=== PATIENT | male | born 1945 | race Caucasian/White ===

== ENCOUNTER 2018-11-12 16:34 | Inpatient (IN) | payer OTHER, MEDICAID ==
[~2018-11-12] VITALS: Ht 167.6 cm; Wt 61.2 kg
--- NOTE | 2018-11-12 17:00 | NUR ---
73/M BIB AMBULANCE, C/O OF GENERALIZED WEAKNESS AND DIZZINESS, STATES HE HAD GEN WEAKNESS SINCE CHEMOTHERAPY LAST MONDAY. PATIENT REPORTS FEELING SOB, ALL THE TIME. PATIENT STATES HE HAS AN ON DEMAND DEFIBRILLATOR. PT AWAKE, ALERT. ABLE TO FOLLWO COMANDS. STAYING IN BED, HOB 30 DEGREES WITH LOW BED POSITION. MD MADE AWARE OF PT STATUS. 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
[2018-11-12] MEDS ORDERED: NACL 0.9% 2,000 ML IV SCH (17:08)
[2018-11-12] MEDS ORDERED: ONDANSETRON 4 MG/2 ML VIAL IVP ONE (17:10)
--- NOTE | 2018-11-12 17:34 | NUR ---
TWO ATTEMPTS FOR ABG AND PT STATED NO MORE, NOTIFIED DR. HERNANDEZ
[2018-11-12 18:56] LABS: HEMATOCRIT 21.7 % (36-52); HEMOGLOBIN 7.2 g/dL (12.0-18.0); MEAN CORPUSCULAR HEMOGLOBIN 30 pg (27-31); MEAN CORPUSCULAR HGB CONC 33 g/dL (33-37); MEAN CORPUSCULAR VOLUME 88.6 fL (80-94); RED BLOOD CELL COUNT(AUTO) 2.45 MIL/uL (4.20-6.10); RED CELL DISTRIBUTION WIDTH 21.5 % (11.6-13.7); WHITE BLOOD COUNT (AUTO) 3.5 K/uL (4.8-10.8)
[2018-11-12 18:57] LABS: PROTHROMBIN TIME 19.1 secs (10.8-13.4)
[2018-11-12 19:08] LABS: MAGNESIUM 2.5 mg/dL (1.8-2.4)
[2018-11-12 19:09] LABS: ANION GAP 16.8 (8-16); CARBON DIOXIDE 21.5 mmol/L (21-32); CHLORIDE 101 mmol/L (98-107); GLUCOSE 114 mg/dL (74-106); POTASSIUM 5.3 mmol/L (3.5-5.1); SODIUM SERUM 134 mmol/L (136-145)
[2018-11-12 19:10] LABS: ASPARTATE AMINOTRANSFERASE 434 U/L (15-37); CREATININE 2.4 mg/dL (0.7-1.3)
--- NOTE | 2018-11-12 19:10 | NUR ---
ENDORSED PT TO PM NURSE
[2018-11-12 19:11] LABS: ALBUMIN 2.7 g/dL (3.4-5.0)
[2018-11-12 19:13] LABS: UREA NITROGEN, BLOOD 70 mg/dL (7-18)
[2018-11-12 19:15] LABS: ACETONE, SERUM NEGATIVE (NEGATIVE); URIC ACID 18.8 mg/dL (2.6-7.2)
[2018-11-12 19:17] LABS: D-DIMER > 5000 ng/ml (0-400)
[2018-11-12] MEDS ORDERED: HYDROcodone/APAP 5/325 MG 1 TAB TAB PO PRN (19:30)
[2018-11-12] MEDS ORDERED: ACETAMINOPHEN 325 MG TAB PO PRN (19:30)
[2018-11-12] MEDS ORDERED: DOCUSATE SODIUM 100 MG GELCAP PO PRN (19:30)
[2018-11-12] MEDS ORDERED: ONDANSETRON 4 MG/2 ML VIAL IM/IVP PRN (19:30)
[2018-11-12 19:38] LABS: LYMPHOCYTES % (MANUAL) 15 % (20-46); MONOCYTES % (MANUAL) 2 % (5-12)
[2018-11-12 19:39] LABS: EOSINOPHILS % (MANUAL) 1 % (0-4)
[2018-11-12 19:43] LABS: PLATELET COUNT (AUTO) 20 K/uL (140-450)
[2018-11-12] MEDS ORDERED: NACL 0.9% 1,000 ML IV SCH (20:00)
[2018-11-12 20:14] LABS: PHOSPHORUS 3.4 mg/dL (2.5-4.9); THYROID STIMULATING HORMONE 2.41 uIU/mL (0.34-3.74)
--- NOTE | 2018-11-12 20:15 | NUR ---
RECEIVED REPORT FROM JESUS OCHOA. PT IN BED WITH BOLUS INFUSING.
--- NOTE | 2018-11-12 20:35 | NUR ---
STARTED 18G IV TO RIGHT FOREARM. DATE TIME AND INITIALS AT IV SITE. BOLUS INFUSING.
--- NOTE | 2018-11-12 20:45 | NUR ---
PT BECAME UNRESPONSIVE WHILE DR COLE WAS ASKING HIM QUESTIONS. PT O2 SATURATION WENT DOWN TO 80% AND PT ONLY RESPONDED TO PAIN. STARTED 02 AT 2L VIA NASAL CANNULA. PT STARTED RESPONDING AFTER 1-[address] COLE SAID SHE IS ADMITTING PT TO ICU INSTEAD.
[2018-11-12] MEDS ORDERED: NACL 0.9% 1,000 ML IV ONE (20:55)
[2018-11-12] MEDS ORDERED: VANCOMYCIN PER PHARMACY MC PRN (20:55)
[2018-11-12] MEDS: FUROSEMIDE 20 MG TAB PO SCH ×2 (21:00→21:43)
--- NOTE | 2018-11-12 21:25 | NUR ---
Patient will be admitted to care of DR BRAXTON. Admited to ICU. Will go to room ICU-2. Belongings list completed. Report to GUANAKO LEE.
--- NOTE | 2018-11-12 21:40 | NUR ---
PATIENT TRANSFERRED FROM ER VIA [place] WITH 2 ASSISTANCE. PATIENT AAO X4, VERBALLY RESPONSIVE. 2L/M O2 VIA NC. HYPOTENSIVE NOTED. PERIPHERAL LINES TO LEFT FOREARM 20G AND RIGHT FOREARM 18G RUNNING WITH NS BOLUS. NO ACUTE DISTRESS NOTED. PACEMAKER TO LEFT UPPER CHEST NOTED. PACED RHYTHM ON THE MONITOR. ACTIVE BOWEL SOUND FROM ALL 4QUADS. HOB ELEVATED, BED IN LOW POSITION. CALL LIGHT WITHIN REACH. PATIENT STATED THAT HE WANT TO SLEEP. DENIES PAIN. WILL CONTINUE TO MONITOR.
[2018-11-12] MEDS: HYDROCORTISONE NA SUCC 100 MG/2 ML VIAL IV SCH (21:43)
[2018-11-12 22:00] VITALS: BP 75/43
[2018-11-12] MEDS ORDERED: VANCOMYCIN 1GM/DEXT 5% PREMIX 200 ML IV SCH (22:00)
[2018-11-12] MEDS ORDERED: SODIUM POLYSTYRENE 15 GM/60 ML UDBTL PO SCH (22:00)
[2018-11-12] MEDS ORDERED: VANCOMYCIN 1,000 MG VIAL ONE (22:39)
[2018-11-12] MEDS ORDERED: METO100T33 PO (22:49)
[2018-11-12] MEDS ORDERED: SPIR25TA (22:49)
[2018-11-12] MEDS ORDERED: ATOR20TA40 PO (22:49)
[2018-11-12] MEDS ORDERED: LOSA100T1 PO (22:49)
[2018-11-12] MEDS ORDERED: APIX5TAB (22:49)
[2018-11-12] MEDS ORDERED: TOPI25CA (22:49)
[2018-11-12] MEDS ORDERED: EFAV600T (22:49)
[2018-11-12] MEDS ORDERED: FURO-570 PO (22:49)
[2018-11-12] MEDS ORDERED: [UNRECOGNIZED DRUG - CODE] PO (22:49)
[2018-11-12] MEDS ORDERED: EMTR1TAB16 (22:49)
--- NOTE | 2018-11-12 22:50 | NUR ---
PRBC BLOOD TRANSFUSION STARTED, VERIFIED WITH CHARGE NURSE. WILL CONTINUE TO MONITOR.
[2018-11-12] MEDS: ACETAMINOPHEN 325 MG TAB PO SCH (22:57)
[2018-11-12] MEDS: DEXT 5% / NACL 0.45% 1,000 ML IV SCH (23:18)
[2018-11-12] MEDS ORDERED: PIPERACILLIN/TAZOBACTAM 2.25 GM VIAL IV ONE (23:27)
--- NOTE | 2018-11-12 23:35 | NUR ---
NO REACTION FROM BLOOD TRANSFUSION NOTED.
[2018-11-13] VITALS (72 sets, daily range): BP systolic 78–118; BP diastolic 38–72
--- NOTE | 2018-11-13 | NUR ---
PT FOR CT OF HEAD WITHOUT CONTRAST ORDERED; BERYL FROM RADIOLOGY IN THE UNIT WITH SIGNALS OFFICER TU LEE; PT STILL RECEIVING BLOOD TRANSFUSION(PRBC) AT THIS TIME; PHONE CALL MADE TO DR OLIVIER VALDOVINOS SAID OK TO DO CT AFTER BLOOD TRANSFUSION.
--- NOTE | 2018-11-13 00:40 | NUR ---
PATIENT PLACED ON VENTI-MASK 15L 50% BECAUSE PATIENT SATURATION WAS DECREASING ON NASAL CANNULA 4L-6L NC. RN AND DOCTOR NOTIFIED. PATIENT IS STABLE ON VENTI-MASK SPO2 98 HEART RATE 81 RR 14. PATIENT WILL BE MONITORED AND FIO2 WILL BE DECREASED/ TITRATED BASED ON HOW THE PATIENT RESPONDS.
[2018-11-13] MEDS: PIPER/TAZO 2.25GM/D5W PREMIX 50 ML IV SCH ×4 (00:56→17:35)
--- NOTE | 2018-11-13 02:15 | NUR ---
BLOOD TRANSFUSION IS DONE. PATIENT AAO X 4. NO ACUTE DISTRESS NOTED. DENIES ANY PAIN OR DISCOMFORT. WILL CONTINUE TO MONITOR.
--- NOTE | 2018-11-13 03:15 | NUR ---
PATIENT HAD BOWEL MOVEMENT, SMALL AMOUNT BLACK COLOR DIARRHEA NOTED.
--- NOTE | 2018-11-13 03:40 | NUR ---
PATIENT CAME BACK FROM CT OF HEAD WITHOUT CONTRAST. NO ACUTE DISTRESS. DENIES PAIN. WILL CONTINUE TO MONITOR.
[2018-11-13] MEDS: ACETAMINOPHEN 325 MG TAB PO SCH ×2 (04:00→08:00)
[2018-11-13] MEDS ORDERED: DOPamine 400 MG/D5W PREMIX 250 ML IV SCH (04:20)
--- NOTE | 2018-11-13 04:35 | NUR ---
STARTED DOPAMINE DRIP FOR HYPOTENSION ORDERED BY DR. DILLON. WILL CONTINUE TO MONITOR.
[2018-11-13] MEDS: HYDROCORTISONE NA SUCC 100 MG/2 ML VIAL IV SCH ×3 (04:38→20:53)
--- NOTE | 2018-11-13 04:40 | NUR ---
HOLD 0400 DOSE FOR BENADRYL AND TYLENOL DUE TO PATIENT IS NOT ON BLOOD TRANSFUSION AT THIS TIME, DR. DILLON AWARE.
--- NOTE | 2018-11-13 05:15 | NUR ---
STOPPED DOPAMINE DRIP DUE TO HR [address] DILLON[address] WILL FOLLOW ORDER.
[2018-11-13] MEDS ORDERED: NOREPINEPHRINE 4 MG in DEXTROSE 5% 250 ML IV PRN (05:20)
[2018-11-13] MEDS ORDERED: PIPERACILLIN/TAZOBACTAM 2.25 GM VIAL IV ONE (05:41)
[2018-11-13] MEDS ORDERED: NOREPINEPHRINE 4 MG/4 ML VIAL IV ONE (05:46)
--- NOTE | 2018-11-13 05:47 | NUR ---
STAT EKG done on patient. Heart rate elevated and blood pressure was low. EKG completed and given to RN nurse and Doctor notified. Patient saturation is 94 heart rate 112bpm. Patient will remain venti-mask 15lpm %50 fio2. RT will monitor patient no changes at this time.
--- NOTE | 2018-11-13 05:50 | NUR ---
STARTED LEVOPHED DRIP FOR HYPOTENSIVE.
[2018-11-13] MEDS: DEXT 5% / NACL 0.45% 1,000 ML IV SCH ×2 (07:00→14:49)
[2018-11-13 07:04] LABS: BASOPHILS % (AUTO) 0.7 % (0.0-2.0); EOSINOPHILS % (AUTO) 0.2 % (0.0-4.0); HEMATOCRIT 24.8 % (36-52); HEMOGLOBIN 8.2 g/dL (12.0-18.0); LYMPHOCYTES # (AUTO) 0.4 K/uL (2.0-11.5); LYMPHOCYTES % (AUTO) 14.6 % (20.5-51.1); MEAN CORPUSCULAR HEMOGLOBIN 30 pg (27-31); MEAN CORPUSCULAR HGB CONC 33 g/dL (33-37); MEAN CORPUSCULAR VOLUME 89.8 fL (80-94); MONOCYTES % (AUTO) 1.6 % (1.7-9.3); NEUTROPHILS # (AUTO) 2.3 K/uL (1.8-7.7); NEUTROPHILS % (AUTO) 82.9 % (42.2-75.2); RED BLOOD CELL COUNT(AUTO) 2.76 MIL/uL (4.20-6.10); RED CELL DISTRIBUTION WIDTH 19.9 % (11.6-13.7); WHITE BLOOD COUNT (AUTO) 2.8 K/uL (4.8-10.8)
[2018-11-13 07:09] LABS: PLATELET COUNT (AUTO) 17 K/uL (140-450)
--- NOTE | 2018-11-13 07:10 | NUR ---
RECEIVED PATIENT FROM ACADEMIC SERVICES COORDINATOR RN, MARIA, FOR CONTINUITY OF CARE. PATIENT IS AAOX4, ABLE TO FOLLOW COMMANDS AND MAKE NEEDS KNOWN. PATIENT SKIN IS WARM AND DRY, AFEBRILE, SKIN NOT INTACT, HE HAS A OPEN WOUND TO R. BUTTOCKS. PATIENT HAS PERIPHERAL IV SITE TO L. FA, 20 GAUGE, AND R. FA, 18 GAUGE, BOTH ASYMPTOMATIC AND PATENT. HE IS ON VENTURI MASK AT 15 LPM, BREATHING IS EVEN AND UNLABORED. PATIENT HAS A PACEMAKER, PACED RHYTHM ON MONITOR, HR 88. DENIES ANY PAIN OR SOB. SAFETY PRECAUTIONS ASSESSED AND ENFORCED. CALL LIGHT WITHIN REACH, NO SIGNS OF DISTRESS NOTED. WILL CONTINUE TO MONITOR
[2018-11-13 07:59] LABS: MAGNESIUM 2.3 mg/dL (1.8-2.4)
--- NOTE | 2018-11-13 07:59 | NUR ---
PATIENT STARTED ON TRANSFUSION OF PLATELETS, ADMINISTERED TYLENOL PRIOR TO TRANSFUSION, TEMP OF 99.8, NO SIGNS OF DISTRESS NOTED, WILL CONTINUE TO MONITOR
--- NOTE | 2018-11-13 08:10 | NUR ---
DR. BRAXTON AND RESIDENT PHYSICIANS AT BEDSIDE, UPDATED PATIENT ON PLAN OF CARE. WILL FOLLOW UP ON ANY ORDERS
--- NOTE | 2018-11-13 08:13 | NUR ---
PATIENT HAS BEEN SCREENED AND CATEGORIZED HIGH NUTRITION RISK. PATIENT WILL BE SEEN WITHIN 1-2 DAYS OF ADMISSION. 11/13/18-11/14/[address]
[2018-11-13 08:21] LABS: T4 (THYROXINE) 4.6 ug/dL (4.5-12.0)
[2018-11-13 08:25] LABS: ANION GAP 17.7 (8-16); CARBON DIOXIDE 19.5 mmol/L (21-32); CHLORIDE 105 mmol/L (98-107); CREATININE 1.9 mg/dL (0.7-1.3); GLUCOSE 187 mg/dL (74-106); POTASSIUM 4.2 mmol/L (3.5-5.1); SODIUM SERUM 138 mmol/L (136-145)
[2018-11-13] MEDS: EMTRICITABINE/TENOFOVIR 200-300MG 1 TAB PO SCH (09:00)
--- NOTE | 2018-11-13 09:01 | NUR ---
DECREASE FIO2 TO .35 AT 9 LITERS SPO2 100
--- NOTE | 2018-11-13 10:10 | NUR ---
TRANSFUSION COMPLETE, PATIENT TOLERATED WELL, NO SIGNS OF REACTION NOTED
[2018-11-13] MEDS: LACTOBACILLUS RHAMNOSUS GG 1 EACH CAP PO SCH (10:16)
[2018-11-13] MEDS ORDERED: PANTOPRAZOLE 40 MG INJ VIAL IVP SCH (10:27)
--- NOTE | 2018-11-13 10:30 | NUR ---
DR. ERICKSON IN TO SEE AND EXAMINE PATIENT, UPDATED ON PATIENT'S CONDITION. WILL FOLLOW UP ON ANY ORDERS.
--- NOTE | 2018-11-13 11:00 | NUR ---
pt unable to produce sputum at this time
[2018-11-13 11:09] LABS: UREA NITROGEN, BLOOD 62 mg/dL (7-18)
--- NOTE | 2018-11-13 11:50 | NUR ---
PATIENT IS OFF UNIT TO GO TO [facility] FOR VQ SCAN, HOOKED UP TO SWITCHBOARD WIRE WORKER HELPER, ON VENTURI MASK AT 9LPM, ACCOMPANIED BY SQL MANAGER, MARLYN, AND [facility] TECH RAYSHAWN. NO SIGNS OF DISTRESS AT THIS TIME
[2018-11-13] MEDS ORDERED: LIDOCAINE 2% 1000 MG/50 ML VIAL INJ SCH (14:14)
[2018-11-13] MEDS ORDERED: NOREPINEPHRINE 16 MG in DEXTROSE 5% 250 ML IV PRN (14:20)
[2018-11-13 15:32] LABS: BASOPHILS % (AUTO) 0.6 % (0.0-2.0); EOSINOPHILS % (AUTO) 0.2 % (0.0-4.0); HEMATOCRIT 24.8 % (36-52); HEMOGLOBIN 8.1 g/dL (12.0-18.0); LYMPHOCYTES # (AUTO) 0.5 K/uL (2.0-11.5); LYMPHOCYTES % (AUTO) 18.5 % (20.5-51.1); MEAN CORPUSCULAR HEMOGLOBIN 29 pg (27-31); MEAN CORPUSCULAR HGB CONC 33 g/dL (33-37); MEAN CORPUSCULAR VOLUME 89.5 fL (80-94); MONOCYTES # (AUTO) 0.1 K/uL (0.8-1.0); MONOCYTES % (AUTO) 1.9 % (1.7-9.3); NEUTROPHILS # (AUTO) 2.1 K/uL (1.8-7.7); NEUTROPHILS % (AUTO) 78.8 % (42.2-75.2); PLATELET COUNT (AUTO) 50 K/uL (140-450); RED BLOOD CELL COUNT(AUTO) 2.77 MIL/uL (4.20-6.10); RED CELL DISTRIBUTION WIDTH 20.5 % (11.6-13.7); WHITE BLOOD COUNT (AUTO) 2.7 K/uL (4.8-10.8)
--- NOTE | 2018-11-13 15:47 | NUR ---
S.T BEDSIDE SWALLOW EVAL COMPLETED Pt presents with mild oral dysphagia c/b impaired mastication of solids. No overt s/s aspiration. Recommend: 1) Advance to mechanical soft ground diet, thin liquids ok. 2) P.O. meds ok whole, placed to R side of oral cavity. No f/u indicated at this time. DC to [facility]. TIME [id number]
--- NOTE | 2018-11-13 15:49 | NUR ---
PATIENT'S FAMILY AT BEDSIDE
[2018-11-13 16:36] LABS: D-DIMER > 5000 ng/ml (0-400); FIBRINOGEN 400 mg/dL (200-400); PROTHROMBIN TIME 17.2 secs (10.8-13.4)
[2018-11-13] MEDS ORDERED: EMTR1TAB16 PO (17:12)
[2018-11-13] MEDS: DESCOVY 200MG/25MG TAB PO SCH (17:35)
--- NOTE | 2018-11-13 18:48 | NUR ---
DR. SIDDIQUI AT BEDSIDE, WILL FOLLOW UP ON ANY ORDERS
--- NOTE | 2018-11-13 19:21 | NUR ---
ENDORSED CONTINUITY OF CARE TO TANK ASSEMBLER RNMARIA, NO SIGNS OF DISTRESS NOTED.
--- NOTE | 2018-11-13 19:30 | NUR ---
RECEIVED BEDSIDE REPORT FROM MORNING NURSE. PATIENT AAO X4, VERBALLY RESPONSIVE. ON VENTI MASK WITH 8L/M OXYGEN, FIO2 35% . HYPOTENSIVE NOTED. CENTRAL LINE TO RIJ TRIPLE LUMENS NOTED WITH LEVOPHED DRIP 5MCG/MIN, D5 1/2NS 60ML/HR. PERIPHERAL LINES TO LEFT FOREARM 20G AND RIGHT FOREARM 18G ON SALINE LOCK. NO ACUTE DISTRESS NOTED. PACEMAKER TO LEFT UPPER CHEST NOTED. PACED RHYTHM TO A-FIB ON THE MONITOR WITH HR 120'S. ACTIVE BOWEL SOUND FROM ALL 4QUADS. HOB ELEVATED, BED IN LOW POSITION. CALL LIGHT WITHIN REACH.
[2018-11-13] MEDS: ATORVASTATIN 20 MG TAB PO SCH (20:53)
[2018-11-13] MEDS: Z-GUARD PASTE TP SCH (21:00)
--- NOTE | 2018-11-13 21:00 | NUR ---
ADMINISTERED SCHEDULED MEDICATIONS ORDERED. PATIENT TOLERATED WELL PO MEDICATION. PACED RHYTHM TO A FIB ON THE MONITOR. DENIES PAIN AT THIS TIME. WILL CONTINUE TO MONITOR.
--- NOTE | 2018-11-13 22:50 | NUR ---
AT BEDSIDE TO CHECK THE PATIENT. WILL FOLLOW ORDER.
[2018-11-13] MEDS ORDERED: VANCOMYCIN 750 MG in DEXTROSE 5% 250 ML IV SCH (23:00)
[2018-11-13] MEDS ORDERED: AMIODARONE 450 MG in DEXTROSE 5% 250 ML IV SCH (23:00)
--- NOTE | 2018-11-13 23:00 | NUR ---
PHONE CALL TO DR HERNANDEZ; MADE AWARE THAT RUNS OF VTACH BECOMING MORE FREQUENT; PTS HEART RATE TO 140'S, DR HERNANDEZ SAID TO CALL DR WEI, FRETTED STRING INSTRUMENT REPAIRER. PHONE CALL TO DR SIDDIQUI,MADE AWARE OF PTS PRESENT CONDITION MENTIONED ABOVE, ALSO INFORMED DR SIDDIQUI PT STILL ON LEVOPHED DRIP AT MCG/MIN, MD ORDERED TO START PT ON AMIODARONE DRIP PER PROTOCOL.OLRENA LEE,AWARE.
[2018-11-13 23:15] LABS: BARBITURATE, URINE NEG. ng/ml (NEG <=200); BENZODIAZEPINE, URINE NEG. ng/mL (NEG <=200); CANNABINOID, URINE NEG. ng/mL (NEG <=50); COCAINE, URINE NEG. ng/mL (NEG <=300); OPIATE, URINE NEG. ng/mL (NEG <=2000); PHENCYCLIDINE SCREEN,URINE NEG. ng/mL (NEG <=25)
[2018-11-13] MEDS ORDERED: AMIODARONE 450 MG/9 ML VIAL IV ONE (23:23)
[2018-11-13] MEDS ORDERED: AMIODARONE 150 MG/3 ML VIAL IV ONE (23:25)
--- NOTE | 2018-11-13 23:40 | NUR ---
STARTED AMIODARONE DRIP, LOADING DOSE DONE AT THIS TIME AND CHANGED TO SLOW LOADING DOSE 33.33ML/HR. WILL CONTINUE TO MONITOR.
[2018-11-13 23:50] LABS: APPEARANCE,URINE CLEAR (CLEAR); BILIRUBIN,URINE NEGATIVE (NEGATIVE); BLOOD, URINE TRACE-I (NEGATIVE); COLOR,URINE YELLOW (YELLOW); LEUKOCYTE ESTERASE ,URINE NEGATIVE (NEGATIVE); NITRITE, URINE NEGATIVE (NEGATIVE); UGLUCOSE NEGATIVE (NEGATIVE)
[2018-11-13 23:51] LABS: RBC,URINE 0-5 (RARE) /HPF (0-5); WBC,URINE 0-5 (RARE) /HPF (0-5)
[2018-11-14] VITALS (95 sets, daily range): BP systolic 86–158; BP diastolic 40–129
[2018-11-14] MEDS: PIPER/TAZO 2.25GM/D5W PREMIX 50 ML IV SCH ×4 (00:39→17:27)
--- NOTE | 2018-11-14 00:40 | NUR ---
ADMINISTERED IV ABX ORDERED. NO ACUTE DISTRESS NOTED. DENIES PAIN. STILL A FIB ON THE MONITOR WITH LEVOPHED DRIP AND AMIODARONE DRIP. WILL CONTINUE TO MONITOR.
--- NOTE | 2018-11-14 02:45 | NUR ---
PATIENT DENIES PAIN. STILL AWAKE. HR BELOW 110 NOTED. NO ACUTE DISTRESS NOTED. WILL CONTINUE TO MONITOR.
--- NOTE | 2018-11-14 04:25 | NUR ---
PATIENT AWAKE. NO ACUTE DISTRESS NOTED. DENIES PAIN. A-FIB ON PACED ON DEMAND WITH HR 110'S. WILL CONTINUE TO MONITOR.
[2018-11-14] MEDS: HYDROCORTISONE NA SUCC 100 MG/2 ML VIAL IV SCH ×3 (05:48→20:39)
[2018-11-14 05:59] LABS: ANION GAP 15.1 (8-16); CARBON DIOXIDE 20.8 mmol/L (21-32); CHLORIDE 105 mmol/L (98-107); CREATININE 1.2 mg/dL (0.7-1.3); GLUCOSE 201 mg/dL (74-106); SODIUM SERUM 138 mmol/L (136-145); UREA NITROGEN, BLOOD 38 mg/dL (7-18)
[2018-11-14 06:03] LABS: MAGNESIUM 2.1 mg/dL (1.8-2.4); PHOSPHORUS 2.6 mg/dL (2.5-4.9)
[2018-11-14 06:16] LABS: POTASSIUM 2.9 mmol/L (3.5-5.1)
[2018-11-14 06:23] LABS: HEMATOCRIT 25.1 % (36-52); HEMOGLOBIN 8.4 g/dL (12.0-18.0); MEAN CORPUSCULAR HEMOGLOBIN 30 pg (27-31); MEAN CORPUSCULAR HGB CONC 34 g/dL (33-37); MEAN CORPUSCULAR VOLUME 88.6 fL (80-94); PLATELET COUNT (AUTO) 46 K/uL (140-450); RED BLOOD CELL COUNT(AUTO) 2.83 MIL/uL (4.20-6.10); RED CELL DISTRIBUTION WIDTH 19.6 % (11.6-13.7)
[2018-11-14 06:25] LABS: WHITE BLOOD COUNT (AUTO) 2.2 K/uL (4.8-10.8)
[2018-11-14] MEDS ORDERED: KCL 20 MEQ/WATER INJ PREMIX 200 ML IV SCH (06:30)
--- NOTE | 2018-11-14 07:30 | NUR ---
RECEIVED BEDSIDE REPORT FROM NIGHT NURSE. PATIENT IS AWAKE, AAO X4, ABLE TO MAKE NEEDS KNOWN. PACED RHYTHM TO A. FIB ON MONITOR. PACEMAKER TO LEFT UPPER CHEST NOTED. PT IS ON VENTURI MASK WITH FIO2 35%, SPO2 94% AT THIS TIME. NO SOB NOTED. CENTRAL LINE TLC TO RIJ ASYMPTOMATIC, INTACT AND PATENT, RUNNING LEVOPHED DRIP AT 7 MCG/MIN, D5 1/2NS AT 60ML/HR, AMIODARONE DRIP AT 0.5 MCG/MIN. PERIPHERAL IVS TO LEFT FOREARM 20G AND RIGHT FOREARM 18G INTACT AND PATENT. ABD SOFT, NONTENDER, NONDISTENDED W/ ACTIVE BOWEL SOUNDS. SKIN IS DRY AND WARM TO TOUCH. 2+ PITTING EDEMA TO BLLE NOTED. SCDS IN PLACE. HOB ELEVATED, BED IN LOWEST POSITION. PT DENIES PAIN. NO DISTRESS NOTED. CALL LIGHT WITHIN REACH. WILL CONTINUE TO MONITOR.
[2018-11-14 07:42] LABS: FIBRINOGEN 374 mg/dL (200-400)
[2018-11-14 07:45] LABS: LYMPHOCYTES % (MANUAL) 25 % (20-46); MONOCYTES % (MANUAL) 3 % (5-12)
--- NOTE | 2018-11-14 07:45 | NUR ---
BREAKFAST PROVIDED. PT REFUSED BREAKFAST STATING HE DOES NOT HAVE ANY APPETITE. REQUESTED ICE CHIPS. ICE CHIPS PROVIDED. NO SIGNS OF DISTRESS NOTED.
--- NOTE | 2018-11-14 08:00 | NUR ---
DR. BRAXTON IN RESIDENT GROUP IN TO SEE PT. WILL FOLLOW UP ON ORDERS.
[2018-11-14] MEDS ORDERED: PROBIOTIC SCREEN 1 EA MISC MC PRN (08:05)
--- NOTE | 2018-11-14 08:30 | NUR ---
PATIENT REQUESTED TO CALL BROTHER ANTHONY MCHUGH IN [place] AT [phone] TO DISCUSS FINANCIAL MATTERS. PATIENT'S BROTHER ANTHONY MCHUGH AND DAUGHTER NISHI MCHUGH TO PATIENT OVER SPEAKER PHONE.
[2018-11-14] MEDS: Z-GUARD PASTE TP SCH (08:34)
[2018-11-14] MEDS: LACTOBACILLUS RHAMNOSUS GG 1 EACH CAP PO SCH (08:34)
[2018-11-14] MEDS: PANTOPRAZOLE 40 MG INJ VIAL IVP SCH (08:34)
[2018-11-14] MEDS ORDERED: DOBUTamine 250 MG/D5W PREMIX 250 ML IV SCH (08:45)
--- NOTE | 2018-11-14 08:50 | NUR ---
PT SEEN BY DR. ERICKSON. WILL FOLLOW UP ON ORDERS.
[2018-11-14] MEDS: DEXT 5% / NACL 0.45% 1,000 ML IV SCH (08:59)
--- NOTE | 2018-11-14 09:30 | NUR ---
MEDICATIONS ADMINISTERED ORDERED.
[2018-11-14] MEDS ORDERED: DOBUTamine 500 MG/D5W PREMIX 250 ML IV SCH (10:15)
--- NOTE | 2018-11-14 10:24 | NUR ---
RECEIVED A CALL FROM X RAY FOR A CRITICAL REPORT. READ BACK RESULTS. DR. SANDOVAL MADE AWARE.
--- NOTE | 2018-11-14 10:45 | NUR ---
District Claims Manager Note: I was informed by JESUS Cook patient was requesting a blank Power of Contact Center Associate for finances form. I met with patient at bedside to discuss his request. Per patient, his brother's (Chay Ryan) daughter Debra Ryan is going to assist him with his request. He stated he has an Advance Directive for health care in his medical chart. I checked chart, there is no Advance Directive. I informed him we don't have an Advance Directive in his chart. He stated he was previously hospitalized in [facility] and they might have his Advance Directive. He verbalized he would like his brother Chay Ryan and his daughter Debra Ryan to be his representatives in case of an emergency. Machinist/Machine Builder and/or Teacher Selection Specialist will follow up as needed.
--- NOTE | 2018-11-14 12:05 | NUR ---
PT VOIDED CLEAR YELLOW URINE. NO CHANGE IN CONDITION AT THIS TIME. PT STILL ON LEVOPHED AND AMIODARONE DRIPS. PT NOT IN ANY DISTRESS. WILL CONTINUE TO MONITOR.
[2018-11-14] MEDS ORDERED: VANCOMYCIN 1GM/DEXT 5% PREMIX 200 ML IV SCH (13:00)
[2018-11-14 13:27] LABS: D-DIMER > 5000 ng/ml (0-400)
--- NOTE | 2018-11-14 14:10 | NUR ---
TURNED AND REPOSITIONED FOR COMFORT. PT TOLERATED WELL.
--- NOTE | 2018-11-14 14:19 | NUR ---
11/14/18 RD INITIAL ASSESSMENT COMPLETED PLEASE REFER TO NUTRITION ASSESSMENT UNDER CARE ACTIVITY FOR ESTIMATED NUTRITIONAL NEEDS. 1. CONTINUE CARDIAC MECHANICALLY SOFT DIET TOLERATED 2. RECOMMEND ENSURE CLEAR TID 3. IF PATIENT CONTINUES TO HAVE PO INTAKE LESS THAN 50% CONSIDER ENTERAL NUTRITION 4. RD TO FOLLOW-UP 2-3 DAYS, HIGH RISK CHRISTOFER CASTILLO RD
[2018-11-14] MEDS ORDERED: POTASSIUM CHLORIDE 40 MEQ, LIDOCAINE 1% 25 MG in NACL 0.9% 250 ML IV SCH (15:00)
[2018-11-14] MEDS ORDERED: EMTRICITABINE PO SCH (17:00)
[2018-11-14] MEDS ORDERED: TENOFOV ALAFENAM PO SCH (17:00)
[2018-11-14] MEDS: DESCOVY 200MG/25MG TAB PO SCH (17:28)
--- NOTE | 2018-11-14 17:50 | NUR ---
PT'S BROTHER, ANTHONY CALLED AND TALKED TO PT VIA HAND PHONE. PT IS AAOX4, NO SOB OR DISTRESS NOTED.
--- NOTE | 2018-11-14 18:31 | NUR ---
DR. HERNANDEZ IN TO SEE PT. UPDATED ON PT'S CONDITION. DR. HERNANDEZ MADE AWARE THAT PT REFUSED MEALS DUE TO POOR APPETITE. WILL FOLLOW UP ON ORDERS.
--- NOTE | 2018-11-14 19:25 | NUR ---
RECEIVED BEDSIDE REPORT FROM MORNING SHIFT RNLEIGH ANN, FOR CONTINUITY OF CARE. ST ON CADD DRAFTER, PACED RHYTHM HX AFIB. TEMP IS 96.7, BP 111/54, SATING 94%, RR=22, CVP=11-12.PT IS AAOX4, ABLE TO MAKE NEEDS KNOWN, CALL BUTTON WITHIN REACH. LUNG SOUND CLEAR/DIMINISHED ON UPPER/LOWER BILATERAL LOBES. ON VETURI MASK AT 9LPM, FIO2=25%. BOWEL SOUND HYPOACTIVE X4 QUADRANTS. ON MECHANICAL SOFT DIET. DENIES NAUSEA AT THIS TIME. URINAL AT BEDSIDE, URINE IS NAA IN COLOR. CONTINENT. DENIES NEED TO HAVE A BOWEL MOVEMENT. SKIN IS NORMAL IN COLOR, INTACT. RIGHT IJ INTACT, INFUSING LEVOPHED AT 2MCG/MIN, KCL 40MEQ, AND AMIODARONE AT .5MCG/MIN. D5 1/2NS INFUSING TO RFA 20 GAUGE AT 60ML/HR. NONPITING EDEMA ON BILATERAL LOWER LEGS, SCD ON RIGHT LOWER LEG, BP CUFF ON LEFT LOWER LEG/CALF. FALL RISK PRECAUTIONS MAINTAINED. HOB ELEVATED ABOVE 45 DEG.
--- NOTE | 2018-11-14 19:30 | NUR ---
REPORT GIVEN TO ANTHROPOLOGY AND ARCHEOLOGY INSTRUCTOR RN FOR CONTINUITY OF CARE. PT IS IN STABLE CONDITION.
--- NOTE | 2018-11-14 20:15 | NUR ---
MALCOLM FROM LAB AT BEDSIDE TO COLLECT BMP. PT AWAKE/ALERT AT THIS TIME.
--- NOTE | 2018-11-14 20:33 | NUR ---
DR. SIDDIQUI IN TO SEE PATIENT, UPDATED ON PT CONDITIONS.
[2018-11-14] MEDS: ATORVASTATIN 20 MG TAB PO SCH (20:39)
[2018-11-14 21:06] LABS: ANION GAP 12.8 (8-16); CHLORIDE 107 mmol/L (98-107); CREATININE 1.2 mg/dL (0.7-1.3); GLUCOSE 165 mg/dL (74-106); POTASSIUM 3.8 mmol/L (3.5-5.1); SODIUM SERUM 138 mmol/L (136-145); UREA NITROGEN, BLOOD 29 mg/dL (7-18)
--- NOTE | 2018-11-14 21:50 | NUR ---
DR. DE PAZ IN TO SEE PT, UPDATED ON PT CONDITION.
--- NOTE | 2018-11-14 22:10 | NUR ---
PT STATED HE FELT LIKE HE WAS GOING TO HAVE DIARRHEA, BED CORDERO GIVEN TO PATIENT, THOUGH NO BM AT THIS TIME. PT IS CALM/COOPERATIVE.
[2018-11-15] VITALS (20 sets, daily range): BP systolic 101–142; BP diastolic 55–90
[2018-11-15] MEDS: Z-GUARD PASTE TP SCH ×2 (01:24→13:19)
[2018-11-15] MEDS: ALBUTEROL SULFATE/IPRATROPIU 3 ML SOL INH PRN ×3 (01:40→21:48)
--- NOTE | 2018-11-15 01:45 | NUR ---
RT BRUCE AT BEDSIDE PER PT REQUEST, STATING THAT HE FEELS HE IS NOT GETTING ENOUGH OXYGEN, THOUGH SATING AT 95% AND RR= 33-35. BRUCE ADMINISTERED BREATHING TREATMENT. FIO2=30%, AT 12 LPM FOR PT COMFORT. SATING CURRENTLY 93-96%.
[2018-11-15] MEDS: DEXT 5% / NACL 0.45% 1,000 ML IV SCH ×2 (02:30→18:19)
--- NOTE | 2018-11-15 02:46 | NUR ---
MINIMAL URINE OUTPUT, 50 ML, LIGHT NAA IN COLOR. PT HOB ELEVATED. D5 1/2 NS AT 60CC/HR INFUSING.
[2018-11-15] MEDS: HYDROCORTISONE NA SUCC 100 MG/2 ML VIAL IV SCH ×3 (04:22→21:12)
[2018-11-15] MEDS ORDERED: CEFEPIME 2,000 MG VIAL IV ONE (04:49)
[2018-11-15] MEDS: CEFEPIME 2,000 MG in DEXTROSE 5% 100 ML IV SCH ×3 (04:59→21:12)
[2018-11-15 05:51] LABS: ANION GAP 14.5 (8-16); CARBON DIOXIDE 21.1 mmol/L (21-32); CHLORIDE 109 mmol/L (98-107); CREATININE 1.1 mg/dL (0.7-1.3); GLUCOSE 152 mg/dL (74-106); POTASSIUM 3.6 mmol/L (3.5-5.1); SODIUM SERUM 141 mmol/L (136-145); UREA NITROGEN, BLOOD 30 mg/dL (7-18)
[2018-11-15 05:58] LABS: MAGNESIUM 2.2 mg/dL (1.8-2.4); PHOSPHORUS 1.9 mg/dL (2.5-4.9)
[2018-11-15 06:24] LABS: HEMATOCRIT 22.2 % (36-52); HEMOGLOBIN 7.4 g/dL (12.0-18.0); MEAN CORPUSCULAR HEMOGLOBIN 30 pg (27-31); MEAN CORPUSCULAR HGB CONC 33 g/dL (33-37); MEAN CORPUSCULAR VOLUME 88.6 fL (80-94); PLATELET COUNT (AUTO) 53 K/uL (140-450); RED BLOOD CELL COUNT(AUTO) 2.51 MIL/uL (4.20-6.10); RED CELL DISTRIBUTION WIDTH 20.6 % (11.6-13.7); WHITE BLOOD COUNT (AUTO) 2.1 K/uL (4.8-10.8)
--- NOTE | 2018-11-15 06:30 | NUR ---
DR. SUGGS AT BEDSIDE TO SEE PATIENT. UPDATED ON CONDITION. PT IS AWAKE/ALERT. URINE OUTPUT 250 PER SHIFT. NO BM. 60 CC/HR NS. NO DRIPS AT THIS TIME.
[2018-11-15 06:58] LABS: MONOCYTES % (MANUAL) 5 % (5-12)
[2018-11-15 06:59] LABS: LYMPHOCYTES % (MANUAL) 65 % (20-46)
[2018-11-15] MEDS ORDERED: SODIUM PHOS / POTASSIUM PHOS 1 PKT PDR PO SCH (07:30)
--- NOTE | 2018-11-15 07:35 | NUR ---
RECEIVED REPORT FROM ACCESS COORDINATOR RN. PT RESTING IN BED. A/OX4. ABLE TO MAKE NEEDS KNOWN. PACED RHYTHM ON MONITOR. ON VENTURI MASK FIO2 35%. SKIN DRY AND WARM TO TOUCH. LUNGS CLEAR. ICD NOTED ON LEFT UPPER LATERAL CHEST. RIGHT IJ TRIPLE LUMEN IN PLACE. FLUSHED. D5%0.45% NS INFUSING AT 60 ML/HR. LFA 20 G. FLUSHED. SITE INTACT. ABDOMEN SOFT ROUND AND NONTENDER. HYPOACTIVE BOWEL SOUND. DENIES ANY PAIN AT THIS TIME. MULTIPLE SCRATCHES NOTED ON BACK. BLANCHABLE REDNESS NOTED ON SACROCOCCYX AREA. BL LOWER EXTREMITIES SWOLLEN. KEPT HOB ELEVATED, BED IN LOW POSITION LOCKED. WILL CONTINUE TO MONITOR.
--- NOTE | 2018-11-15 07:35 | NUR ---
PROVIDED BEDSIDE REPORT TO MORNING SHIFT RNTRINA, FOR CONTINUITY OF CARE.
[2018-11-15] MEDS: PANTOPRAZOLE 40 MG INJ VIAL IVP SCH (08:19)
[2018-11-15] MEDS: AMIODARONE 200 MG TAB PO SCH ×2 (08:19→21:13)
[2018-11-15] MEDS: LACTOBACILLUS RHAMNOSUS GG 1 EACH CAP PO SCH (08:20)
--- NOTE | 2018-11-15 09:21 | NUR ---
PT GETS SOB WITH LITTLE ACTIVITIES. ENCOURAGED PT TO ASK FOR HELP. ASSISTED NEEDED. RT AWARE. CONTINUE ON VENTURI MASK 35%. HOB ELEVATED.
--- NOTE | 2018-11-15 11:27 | NUR ---
HR INCREASED. EPISODE OF V-TACH SHOWING IN EKG. PT DENIES ANY PAIN OR DIFFICULTY. DR. LONDON. MADE AWARE.
[2018-11-15] MEDS ORDERED: LORazepam 2 MG/ML VIAL IVP SCH (11:30)
--- NOTE | 2018-11-15 11:31 | NUR ---
EKG AT THE BEDSIDE.
--- NOTE | 2018-11-15 11:48 | NUR ---
ADMINISTERED ATIVAN PER ORDER. PT SEEN BY DR. LONDON.
[2018-11-15] MEDS ORDERED: DIGOXIN 0.25 MG/ML AMP IV SCH ×2 (12:30→16:30)
--- NOTE | 2018-11-15 12:56 | NUR ---
PT KEEPS TAKING OFF VENTURI MASK. EDUCATED RISK AND BENEFITS OF BEING ON O2 VIA MASK. PT NODDED HEAD. PLACED PT BACK ON O2 VIA MASK. SPO2 97% AT THIS TIME. DENIES ANY PAIN. HOB ELEVATED. BED IN LOW POSITION,LOCKED. WILL CONTINUE TO MONITOR.
--- NOTE | 2018-11-15 17:12 | NUR ---
HR 95. NO SOB OR ACUTE DISTRESS NOTED. DENIES DIZZINESS. DENIES PAIN OR DISCOMFORT. ASSISTED NEEDED. WILL CONTINUE TO MONITOR.
[2018-11-15] MEDS: DESCOVY 200MG/25MG TAB PO SCH (18:08)
--- NOTE | 2018-11-15 19:25 | NUR ---
RECEIVED REPORT FROM DAY SHIFT, NO ACUTE DISTRESS, WILL CONTINUE TO OBSERVE.
--- NOTE | 2018-11-15 19:28 | NUR ---
REPORT GIVEN TO PRODUCT SAFETY ADMINISTRATOR RN FOR CONTINUITY OF CARE.
[2018-11-15] MEDS ORDERED: COMMUNICATION ORDER MC SCH (21:00)
[2018-11-15] MEDS: ATORVASTATIN 20 MG TAB PO SCH (21:13)
--- NOTE | 2018-11-15 21:35 | NUR ---
PT INSTRUCTED TO COUGH AND DEEP BREATH. PT CONTINUES TO TAKE VENTI MASK OFF. REINFORCED IMPORTANCE OF SUPPLEMENTAL OXYGEN. PT AGREEABLE, WILL CONTINUE TO OBSERVE.
[2018-11-15] MEDS ORDERED: LORazepam 2 MG/ML VIAL IM/IVP ONE (21:45)
--- NOTE | 2018-11-15 21:45 | NUR ---
NOTIFIED DR. HERNANDEZ ABOUT PT RESTLESS RR 30-40S, ATIVAN ORDERED. SEE EMAR FOR DETAILS.
[2018-11-15] MEDS ORDERED: LORazepam 2 MG/ML VIAL ONE (21:54)
--- NOTE | 2018-11-15 21:56 | NUR ---
ATIVAN GIVEN PER MD ORDER; RT @ BEDSIDE, BREATHING TX GIVEN.
[2018-11-15] MEDS: SUSTIVA 600 MG PO SCH (21:57)
--- NOTE | 2018-11-15 22:00 | NUR ---
PT RESTING,VSS NO S/S OF DISTRESS NOTED. FLACC 0 WILL CONTINUE TO OBSERVE.
--- NOTE | 2018-11-15 22:30 | NUR ---
PT TAKING OFF VENTI MASK; PT REDIRECTED AND INSTRUCTED IMPORTANCE OF O2 MASK, WILL CONTINUE TO OBSERVE.
--- NOTE | 2018-11-15 23:00 | NUR ---
PT NOT FOLLOWING COMMANDS. TAKING VENTI MASK OFF. PT GIVEN BATH AND LINEN CHANGE. WILL CONTINUE TO OBSERVE. Addendum: 11/16/18 at 0147 by Hill Godinez RN VENTI MASK REPLACED, BED LOCKED IN LOWEST POSITION.
[2018-11-16] VITALS (20 sets, daily range): BP systolic 93–132; BP diastolic 46–93
--- NOTE | 2018-11-16 | NUR ---
PT HAS EYES CLOSED. FLACC 0 VSS, NO S/S OF DISTRESS NOTED. WILL CONTINUE TO OBSERVE.
--- NOTE | 2018-11-16 00:31 | NUR ---
PT WOKE UP, CONFUSED, TAKING VENTI MASK OFF, REORIENTED PT AND REASSURED PT SAFETY. VENTI MASK REPLACED. WILL CONTINUE TO OBSERVE
--- NOTE | 2018-11-16 00:50 | NUR ---
NOTIFIED DR. HERNANDEZ ABOUT PTS PERIODS OF CONFUSION, TAKING VENTI MASK OFF, AND RESPIRATORY RATE OF 30-40S THROUGHOUT NIGHT. ABG ORDERED. WILL CONTINUE TO OBSERVE
--- NOTE | 2018-11-16 00:55 | NUR ---
PT CONFUSED, PULLED CENTRAL LINE OUT AND VENTI MASK OFF. 0056: MAUNAL PRESSURE HELD AT RIJ CENTRAL LINE SITE X 10 MINS. HEMOSTASIS ACHIEVED. DRESSING WITH TEGADERM APPLIED. GOWN AND LINEN CHANGED. CENTRAL LINE CATHETER TIP INTACT. NO FURTHER BLEEDING NOTED. WILL CONTINUE TO OBSERVE. 0105: DR. HERNANDEZ @ BEDSIDE. NOTIFIED ABOUT PT PULLING INVASIVE LINES. MD TO PLACE ORDERS FOR RESTRAINTS @ THIS TIME. CXR, ABG ORDERED. WILL CONTINUE TO OBSERVE.
[2018-11-16] MEDS ORDERED: SODIUM BICARBONATE 8.4% 50 MEQ in NACL 0.9% 1,000 ML IV SCH (01:40)
[2018-11-16] MEDS: Z-GUARD PASTE TP SCH ×2 (01:40→12:35)
[2018-11-16] MEDS: ALBUTEROL SULFATE/IPRATROPIU 3 ML SOL INH PRN ×4 (03:00→19:01)
--- NOTE | 2018-11-16 03:30 | NUR ---
PATIENT IS HAVING DIFFICULTY SLEEPING AND IS REMOVING VENTI MASK. PATIENT RESP RATE IS ELEVATED AND HEART IS ELEVATED. PATIENT IS WHEEZING AND IS HAVING DIFFICULTY MOBILIZING SECRETIONS ON HIS OWN. PATIENT IS ON VENTI MASK 12 LPM %40 FIO2. RN AND DOCTOR NOTIFIED. RT DID ABG ON PATIENT AND RESULTS GIVEN TO DOCTOR AND RN. PATIENT IS HAVING DIFFICULTY FOLLOWING DIRECTIONS. RT AND RN WILL MONITOR PATIENT CLOSELY. PRN TX WAS ALSO GIVEN FOR WHEEZING.
--- NOTE | 2018-11-16 04:20 | NUR ---
PT HAD X13 BEATS NON SUSTAINED VTACH; PT ASYMPTOMATIC DENIES CP/SOB @ THIS TIME. MADE AWARE. NO NEW ORDERS. WILL CONTINUE TO OBSERVE
[2018-11-16] MEDS: CEFEPIME 2,000 MG in DEXTROSE 5% 100 ML IV SCH ×3 (05:31→21:14)
[2018-11-16] MEDS: HYDROCORTISONE NA SUCC 100 MG/2 ML VIAL IV SCH ×3 (05:32→21:15)
[2018-11-16 05:51] LABS: HEMOGLOBIN 7.8 g/dL (12.0-18.0)
[2018-11-16 05:58] LABS: ANION GAP 20.2 (8-16); CARBON DIOXIDE 17.8 mmol/L (21-32); CHLORIDE 107 mmol/L (98-107); CREATININE 1.6 mg/dL (0.7-1.3); GLUCOSE 149 mg/dL (74-106); SODIUM SERUM 141 mmol/L (136-145); UREA NITROGEN, BLOOD 35 mg/dL (7-18)
[2018-11-16 05:59] LABS: HEMATOCRIT 24.5 % (36-52); MEAN CORPUSCULAR HEMOGLOBIN 30 pg (27-31); MEAN CORPUSCULAR HGB CONC 32 g/dL (33-37); MEAN CORPUSCULAR VOLUME 92.5 fL (80-94); PLATELET COUNT (AUTO) 55 K/uL (140-450); RED BLOOD CELL COUNT(AUTO) 2.65 MIL/uL (4.20-6.10); RED CELL DISTRIBUTION WIDTH 21.3 % (11.6-13.7)
[2018-11-16 06:03] LABS: WHITE BLOOD COUNT (AUTO) 1.9 K/uL (4.8-10.8)
[2018-11-16 06:22] LABS: CORRECTED WHITE BLOOD COUNT 1.8 K/uL (4.5-11.0); LYMPHOCYTES % (MANUAL) 57 % (20-46); MONOCYTES % (MANUAL) 4 % (5-12)
--- NOTE | 2018-11-16 06:31 | NUR ---
DR SUGGS @ BEDSIDE. NOTIFIED OF WBC 1.91.
--- NOTE | 2018-11-16 06:35 | NUR ---
NOTIFIED DR SUGGS ABOUT EVENTFUL NIGHT. PT HAD PERIODS OF CONFUSION. PULLED OUT CENTRAL LINE. MD AWARE. NO NEW ORDERS AT THIS TIME
--- NOTE | 2018-11-16 07:30 | NUR ---
RECEIVED BEDSIDE REPORT FROM FILTER TENDER RN. PATIENT IS LETHARGIC, AAOX1 AT THIS TIME. FLACC 0. AFEBRILE. PACED RHYTHM W/ ATRIAL FIB ON MONITOR. PT IS ON VENTI MASK W/ FIO2 50%, LUNGS WHEEZING BILATERALLY. LABORED BREATHING AND TACHYPNIC. ABD SOFT, NONDISTENDED, NONTENDER W/ HYPOACTIVE BOWEL SOUNDS. PERIPHERAL IVS G18 TO RFA AND G20 TO LFA ASYMPTOMATIC, PATENT, INTACT. PT RECEIVING IVF D51/2NS AT 60 ML/HR. SKIN IS DRY AND WARM TO TOUCH. EXCORIATION TO BACK, BLANCHABLE REDNESS TO SACROCOCCYX AREA NOTED. SCDS IN PLACE. BLLE SWOLLEN. HOB AT 30 DEGREES, BED IN LOWEST POSITION AND CALL LIGHT WITHIN REACH. NO SIGNS OF DISTRESS NOTED. WILL CONTINUE TO MONITOR.
--- NOTE | 2018-11-16 08:00 | NUR ---
DR. BRAXTON AND RESIDENT GROUP IN TO SEE PT. WILL FOLLOW UP ON ORDERS.
--- NOTE | 2018-11-16 08:20 | NUR ---
PER CHARGE NURSE PT IS MEDICALLY UNSTABLE AT THIS TIME, MAY NEED INTUBATION.
[2018-11-16] MEDS ORDERED: FUROSEMIDE 20 MG/2 ML VIAL IVP SCH (08:30)
[2018-11-16] MEDS: LACTOBACILLUS RHAMNOSUS GG 1 EACH CAP PO SCH ×2 (08:45→09:00)
[2018-11-16] MEDS: PANTOPRAZOLE 40 MG INJ VIAL IVP SCH (08:45)
[2018-11-16] MEDS: AMIODARONE 200 MG TAB PO SCH ×3 (08:46→21:00)
[2018-11-16] MEDS: DEXT 5% / NACL 0.45% 1,000 ML IV SCH (08:47)
--- NOTE | 2018-11-16 08:47 | NUR ---
PT PLACED ON BIPAP BY REQUEST OF PHYSICIAN. BIPAP SETTINGS 12/5, R 14, FIO2 45%. SPO2 97%. PT TACHYPNEIC. NURSE BEDSIDE AND MADE AWARE. BIPAP PLUGGED INTO A RED OUTLET WITH ALARMS ON AND FUNCTIONING. WILL CONTINUE TO MONITOR.
--- NOTE | 2018-11-16 09:00 | NUR ---
PT IS DROWSY, ON BIPAP. REFUSED TO EAT, DRINK WATER OR TAKE MEDICATION AT THIS TIME. DR. SUGGS MADE AWARE. OK TO HOLD PO MEDICATIONS AT THIS TIME PER DR. SUGGS.
--- NOTE | 2018-11-16 10:10 | NUR ---
PT. IS OFF FLOOR FOR TEST.
--- NOTE | 2018-11-16 10:10 | NUR ---
14FR CERVANTES CATHETER INSERTED, DRAINING CLEAR YELLOW URINE NOTED. NO S/SX OF DISTRESS AT THIS TIME.
--- NOTE | 2018-11-16 10:40 | NUR ---
RETURNED FROM RADIOLOGY. CT W/O CONTRAST DONE FOR CHEST, ABD, PELVIS. VSS. NO DISTRESS NOTED AT THIS TIME.
[2018-11-16] MEDS ORDERED: PHENYLEPHRINE 10 MG/ML VIAL IV ONE (10:50)
--- NOTE | 2018-11-16 11:00 | NUR ---
PT SEEN BY DR. ERICKSON. WILL FOLLOW UP ON ORDERS.
[2018-11-16] MEDS ORDERED: SODIUM BICARBONATE 8.4% PFS 50 MEQ/50 ML SYR IVP SCH (12:15)
--- NOTE | 2018-11-16 12:55 | NUR ---
SCREEN FOR LOW GRISEL SCALE AT RISK, PREVENTION INTERVENTIONS IN PLACE. -TURN AND REPOSITION PATIENT Q 2H OFFLOAD SACRALCOCCYX -ASSESS AND MONITOR SKIN CONDITION DURING POSITION CHANGE, PLEASE PAY ATTENTION TO FEET AND HEELS -OFFLOAD BILATERAL HEELS BY PLACING PILLOWS UNDER CALVES AT ALL TIMES, UNLESS OTHERWISE CONTRAINDICATED -PRESSURE REDISTRIBUTION SURFACE THERAPY -KEEP SKIN CLEAN AND DRY AT ALL TIMES. PER PRIMARY RN, PT IS NOT COOPERATE THIS TIME FOR ASSESSMENT, PT. IS INTUBATED WITH WRIST RESTRAINT IN PLACE AND REMAIN RESTLESS. WILL CONTINUE CURRENT TREATMENT ORDER.
--- NOTE | 2018-11-16 13:10 | NUR ---
1147 RECEIVED CALL FROM IRIS GREGORIO AT [facility] INQUIRING IF PATIENT IS STABLE ENOUGH FOR TRANSFER TO [facility] [place]. [address] ERICKSON WHO STATED THAT AT THIS TIME THE PATIENT IS NOT STABLE FOR TRANSFER DUE TO NEWLY BEING PLACED ON BIPAP. 1210 CALLED [facility] [phone] AND LEFT VM THAT PER DR ERICKSON PATIENT IS NOT STABLE FOR TRANSFER.
[2018-11-16] MEDS: SODIUM BICARBONATE 8.4% 100 MEQ in DEXTROSE 5% 1,000 ML IV SCH (13:12)
--- NOTE | 2018-11-16 13:20 | NUR ---
PT'S NEPHEW AT BEDSIDE. REQUESTED BIPAP TO BE OFF TO HAVE CONVERSATION WITH PT. RT MADE AWARE, RT ASSISTED PT WITH TAKING BIPAP OFF. NO DISTRESS NOTED AT THIS TIME.
[2018-11-16] MEDS: LORazepam 2 MG/ML VIAL IVP PRN (14:45)
--- NOTE | 2018-11-16 14:45 | NUR ---
PT IS ANXIOUS, TRYING TO TAKE BIPAP OFF, TACHYCARDIC AND TACHYPNEIC. ATIVAN ADMINISTERED ORDERED. WILL CONTINUE TO MONITOR.
--- NOTE | 2018-11-16 17:50 | NUR ---
CONTINUED TO MONITOR PT ON BIPAP CHARTED SPT QUIET SEEM TO BE ALFONSO BIPAP AT THIS TIME
[2018-11-16] MEDS: DESCOVY 200MG/25MG TAB PO SCH (18:00)
--- NOTE | 2018-11-16 18:00 | NUR ---
PT UNABLE TO SWALLOW PILLS AT THIS TIME. OK TO HOLD PO MEDS AT THIS TIME PER DR. SUGGS.
--- NOTE | 2018-11-16 18:30 | NUR ---
PT SEEN AND EXAMINED BY DR. HERNANDEZ. UPDATES GIVEN ON PT'S CONDITION. WILL FOLLOW UP ON ORDERS.
--- NOTE | 2018-11-16 19:29 | NUR ---
REPORT GIVEN TO GREEN MARKETING ANALYST RN FOR CONTINUITY OF CARE. NO SIGNS OF DISTRESS NOTED AT THIS TIME.
--- NOTE | 2018-11-16 19:30 | NUR ---
RECEIVED REPORT FROM MORNING RN FOR CONTINUITY OF CARE. VS STABLE AT THIS TIME. SBP ON LOW 100S. PERRL. PT AOX1. FLACC 0. DOES NOT APPEAR TO BE EXPERIENCING ANY DISCOMFORT AT THIS TIME. LUNG SOUNDS AUSCULTATED. WHEEZING HEARD. PT ON BIPAP AND TOLERATING WELL AT THIS TIME. S1+S2 HEARD. PULSES ARE PALPABLE. AFIB ON MONITOR. PT HAS AICD. ABDOMEN ROUND, SOFT AND NONDISTENDED. BS HYPOACTIVE. CERVANTES CATHETER IN PLACE. DRAINING CLEAR AND YELLOW URINE. RECEIVED PT WITH PERIPHERAL IV ACCESS ON RIGHT FOREARM 18G AND LEFT FOREARM 20G. PT HAS BICARB RUNNING AT 75ML/HR. LINES ARE PATENT, INTACT, AND SYMPTOMATIC. BED AT LOWEST POSSIBLE POSITION. CALL LIGHT WITHIN REACH. WILL CONTINUE TO MONITOR PT.
[2018-11-16] MEDS: ATORVASTATIN 20 MG TAB PO SCH (21:00)
[2018-11-16] MEDS ORDERED: FUROSEMIDE 40 MG/4 ML VIAL IVP SCH (21:00)
[2018-11-16] MEDS: SUSTIVA 600 MG PO SCH (21:00)
[2018-11-16] MEDS ORDERED: CLINDAMYCIN 600 MG/4 ML VIAL ONE (21:14)
[2018-11-16] MEDS: CLINDAMYCIN 600 MG in DEXTROSE 5% 50 ML IV SCH (21:55)
--- NOTE | 2018-11-16 21:56 | NUR ---
CALLED DR. HERNANDEZ TO NOTIFY HER THAT PT'S SBP SINCE START OF SHIFT HAS BEEN BETWEEN HIGH 90S TO LOW 100S. PT HAS LASIX ORDERED. OKAY TO HOLD LASIX AT THIS TIME.
--- NOTE | 2018-11-16 22:13 | NUR ---
DR. ALDANA AT BEDSIDE TO SEE PT. RECEIVED NEW ORDERS. NOTED. WILL ENDORSE TO THE NEXT SHIFT WELL.
[2018-11-17] VITALS (16 sets, daily range): BP systolic 84–148; BP diastolic 33–85
--- NOTE | 2018-11-17 00:20 | NUR ---
NO CHANGE IN PT'S CONDITION AT THIS TIME. VS STABLE. FLACC 0. PT DOES NOT APPEAR TO BE EXPERIENCING ANY DISCOMFORT WELL.
[2018-11-17] MEDS: Z-GUARD PASTE TP SCH ×2 (01:28→13:31)
--- NOTE | 2018-11-17 01:57 | NUR ---
PT TURNED AND REPOSITIONED AT THIS TIME. PT ABLE TO HELP. HE WAS COMPLAINING OF DRY MOUTH, ORAL CARE PROVIDED. IV SITES ARE INTACT. ALL SAFETY PRECAUTIONS ARE IN PLACE. PT ON BIPAP STILL. RESPIRATIONS ARE NOT LABORED.
[2018-11-17] MEDS: SODIUM BICARBONATE 8.4% 100 MEQ in DEXTROSE 5% 1,000 ML IV SCH (03:25)
--- NOTE | 2018-11-17 04:40 | NUR ---
PT DISCONNECTED HIS BIPAP DESPITE BEING ON RESTRAINTS. PT RECONNECTED.
[2018-11-17] MEDS: CEFEPIME 2,000 MG in DEXTROSE 5% 100 ML IV SCH ×3 (04:54→20:43)
[2018-11-17] MEDS: CLINDAMYCIN 600 MG in DEXTROSE 5% 50 ML IV SCH (04:54)
[2018-11-17] MEDS: HYDROCORTISONE NA SUCC 100 MG/2 ML VIAL IV SCH ×3 (04:54→20:43)
[2018-11-17] MEDS ORDERED: CLINDAMYCIN 600 MG/4 ML VIAL ONE (04:56)
--- NOTE | 2018-11-17 05:16 | NUR ---
MORNING CARE PROVIDED TO PT. PT TOLERATED BEING TURNED AND REPOSITIONED WELL. PT ABLE TO ASSIST. NEW IV STARTED ON PT'S RIGHT FOREARM 20G. BLOOD RETURN NOTED. VS STABLE AT THIS TIME.
--- NOTE | 2018-11-17 05:50 | NUR ---
0525 ABG DRAWN SAMPLE WAS MIXED VENOUS. RESULTS GIVEN TO DR HERNANDEZ. SAID NOT TO REDRAW. NO CHANGES ON BIPAP SETTINGS
[2018-11-17 06:12] LABS: MAGNESIUM 2.1 mg/dL (1.8-2.4); PHOSPHORUS 1.8 mg/dL (2.5-4.9)
[2018-11-17 06:15] LABS: ANION GAP 8.1 (8-16); CARBON DIOXIDE 30.9 mmol/L (21-32); CHLORIDE 102 mmol/L (98-107); CREATININE 1.5 mg/dL (0.7-1.3); SODIUM SERUM 138 mmol/L (136-145); UREA NITROGEN, BLOOD 33 mg/dL (7-18)
[2018-11-17 06:26] LABS: GLUCOSE 569 mg/dL (74-106)
--- NOTE | 2018-11-17 06:26 | NUR ---
RECEIVED A CALL FROM LAB THAT PT HAS A CRITICAL HIGH GLUCOSE AT 569. RECHECKED PT'S BLOOD SUGAR THROUGH FINGERSTICK. MACHINE READING WAS 146. REPORTED TO RESIDENT DOCTOR, SPOKE WITH DR. SUGGS; REPORTED BOTH VALUES. NO FURTHER ORDERS RECEIVED AT THIS TIME.
--- NOTE | 2018-11-17 06:38 | NUR ---
DR. SUGGS AT BEDSIDE TO SEE PT.
[2018-11-17 07:00] LABS: WHITE BLOOD COUNT (AUTO) 6.2 K/uL (4.8-10.8)
[2018-11-17 07:03] LABS: HEMATOCRIT 19.8 % (36-52); HEMOGLOBIN 6.6 g/dL (12.0-18.0); MEAN CORPUSCULAR HEMOGLOBIN 30 pg (27-31); MEAN CORPUSCULAR HGB CONC 33 g/dL (33-37); MEAN CORPUSCULAR VOLUME 89.8 fL (80-94); PLATELET COUNT (AUTO) 42 K/uL (140-450); RED CELL DISTRIBUTION WIDTH 20.5 % (11.6-13.7)
[2018-11-17 07:10] LABS: CORRECTED WHITE BLOOD COUNT 3.2 K/uL (4.5-11.0)
[2018-11-17 07:12] LABS: LYMPHOCYTES % (MANUAL) 40 % (20-46); MONOCYTES % (MANUAL) 20 % (5-12)
--- NOTE | 2018-11-17 07:22 | NUR ---
REPORT GIVEN TO MORNING RN FOR CONTINUITY OF CARE. VS STABLE AT THIS TIME. ENDORSED THE STANDING ORDER FROM DR. ALDANA.
--- NOTE | 2018-11-17 08:00 | NUR ---
RECEIVED PATIENT ON BED.PT ON BIPAP BUT RT IN THE ROOM AND WILL CHANGE TO 4LNC.CERVANTES CATHETER TO GRAVITY.LEFT CHEST AICD,AFIB WITH PACED RHYTHM ON THE MONITOR.LEFT AND RIGHT FOREARM PIV INTACT AND PATENT .NO CO PAIN NOR SHORTNESS OF BREATH.WILL MONITOR.
--- NOTE | 2018-11-17 08:00 | NUR ---
RECIVED PT ON BIPAP WITH SETTINGS CHARTED ALFONSO WELL AWAKE ALERT REMOVED PT FROM BIPAP AND PLACED ON 4LPM NC PT WITH BREATH BILAT COARSE DR SUGGS BEDSIDE WILL CONTINUE TO MONITOR PT
[2018-11-17] MEDS ORDERED: SODIUM PHOS / POTASSIUM PHOS 1 PKT PDR PO SCH (08:37)
[2018-11-17] MEDS: POTASSIUM CHLORIDE 20% 40 MEQ/15 ML UDC PO SCH (09:00)
[2018-11-17] MEDS ORDERED: POTASSIUM CHLORIDE 40 MEQ, LIDOCAINE MPF 1% - 5 mL VIAL 25 MG in NACL 0.9% 250 ML IV SCH (09:00)
[2018-11-17] MEDS: LACTOBACILLUS RHAMNOSUS GG 1 EACH CAP PO SCH (09:00)
[2018-11-17] MEDS: AMIODARONE 200 MG TAB PO SCH ×2 (09:00→20:44)
[2018-11-17] MEDS ORDERED: DIGOXIN 0.25 MG/ML AMP IV SCH (09:00)
[2018-11-17] MEDS: PANTOPRAZOLE 40 MG INJ VIAL IVP SCH (09:19)
[2018-11-17] MEDS: FUROSEMIDE 40 MG/4 ML VIAL IVP SCH ×2 (09:20→18:00)
--- NOTE | 2018-11-17 09:50 | NUR ---
decreased to 2lpm .28 rn aware pt awake alert will cpntinue to monitor
--- NOTE | 2018-11-17 10:22 | NUR ---
DR. SIDDIQUI CAME IN TO SEE PT AT BEDSIDE, WILL FOLLOW UP WITH NEW ORDERS.
[2018-11-17] MEDS: FILGRASTIM-TBO 300 MCG/0.5 ML SYRINGE SUBQ SCH (11:00)
[2018-11-17] MEDS: MORPHINE SULFATE 2 MG/ML SYR IVP PRN ×2 (11:56→23:29)
[2018-11-17] MEDS ORDERED: TPN PER PHARMACY MC PRN (13:05)
--- NOTE | 2018-11-17 13:10 | NUR ---
PLACED PT BACK ON BIPAP PT UNABLE TO MAINTAIN SPO2 >88 RN AWARE
[2018-11-17] MEDS: CLINDAMYCIN PHOS 600MG/D5W PM 50 ML IV SCH ×2 (13:30→20:28)
--- NOTE | 2018-11-17 13:30 | NUR ---
11/17/18 RD FOLLOW UP COMPLETED PLEASE REFER TO NUTRITION PROGRESS NOTE UNDER CARE ACTIVITY FOR ESTIMATED NUTRITION NEEDS. RD RECOMMENDATIONS: 1. CONTINUE NPO MEDICALLY APPROPRIATE PER MD. 2. IF PT WILL NEED TUBE FEEDING, CONSIDER VITAL AF AT 70 ML/HR TO PROVIDE 1680 ML OF TOTAL VOLUME, 2016 KCAL, 125 GM OF PROTEIN, AND 1362 ML OF FREE WATER (WILL MEET 100% OF ESTIMATED ENERGY AND PROTEIN NEEDS). --START AT 20 ML/HR AND ADVANCE TOLERATED TO GOAL RATE. --CONSIDER 200 ML OF FREE WATER FLUSH Q6H. 3. IF TUBE FEEDING IS NOT APPROPRIATE, CONSIDER TPN/PPN. 4. RD TO FOLLOW-UP 2-3 DAYS, HIGH RISK EWELINA AGUILAR, RD
[2018-11-17] MEDS ORDERED: INSULIN LISPRO SLIDING SCALE 100 UNITS/ML VIAL SUBQ PRN (14:15)
[2018-11-17] MEDS ORDERED: DEXTROSE 50% 50 ML SYR IVP PRN (14:15)
--- NOTE | 2018-11-17 15:00 | NUR ---
REMOVED PT FROM BIPAP AND PLACED PT ON 4LPM OXYMIZER
--- NOTE | 2018-11-17 15:28 | NUR ---
DR. ERICKSON CAME IN TO SEE PT AT BEDSIDE, UPDATED PT'S CONDITION, RT AT BEDSIDE, WILL FOLLOW UP WITH NEW ORDERS.
[2018-11-17] MEDS ORDERED: BLOOD GLUCOSE MONITORING 1 DEV DEV FS SCH ×3 (16:30→21:00)
[2018-11-17] MEDS: BLOOD GLUCOSE MONITORING 1 DEV DEV MC SCH ×2 (17:10→23:28)
[2018-11-17] MEDS: DESCOVY 200MG/25MG TAB PO SCH (18:00)
[2018-11-17] MEDS: DEXT 5% / NACL 0.45% 1,000 ML IV SCH (18:19)
--- NOTE | 2018-11-17 19:20 | NUR ---
REPORT GIVEN TO MARQUEZ
--- NOTE | 2018-11-17 19:24 | NUR ---
I JUST PLACED THE MASK OF BIPAP ON HIS FACE , AFTER I ASK HIM IF IS OK, AND HE PULLED OFF THE MASK AFTER ONE MINUTE. CALL THE RN TO SEE IT AND TALK WITH HIM, RIVERA COUPLE MORE TIMES, BUT HE REFUSED TO USE IT.
--- NOTE | 2018-11-17 19:30 | NUR ---
RECEIVED REPORT FROM DAY SHIFT RN NO ACUTE DISTRESS NOTED. WILL CONTINUE TO OBSERVE.
--- NOTE | 2018-11-17 19:35 | NUR ---
PT CONTINUES TO REFUSE NGT INSERTION. MADE AWARE. WILL CONTINUE TO OBSERVE
--- NOTE | 2018-11-17 19:45 | NUR ---
PT AWAKE, RESPONDING TO SIMPLE COMMANDS. LETHARGIC; PERIODS OF CONFUSION NOTED. PT ALERT TO NAME, UNABLE TO STATE @ THIS TIME. PT UNABLE TO MAKE NEEDS KNOWN, PT RESTLESS @ TIMES. OXYMIZER IN PLACE @ 6L. PT DENIES CP/SOB. LUNGS DIMINISHED BILATERALLY. AICD IN PLACE TO L UPPER CHEST, AFIB ON MONITOR, IRREGULAR HR NOTED. +1-2 EDEMA NOTED TO BUE/BLE ABD SOFT NON DISTENDED, NPO EXCEPT MEDS @ THIS TIME. LAST BM NOTED TODAY. CERVANTES CATH IN PLACE DRAINING CLEAR YELLOW URINE, TO GRAVITY. SKIN NON INTACT. EXCORIATION TO BUTTOCKS AREA, BLANCHABLE REDNESS TO SACRAL COCCYX AREA. SCATTERED BRUISING NOTED. PERIPHERAL IVS TO R FA 20 G AND L FA 20 G FLUSHED AND PATENT. PT TURNING AND REPOSITIONING IN BED. BILATERAL SOFT WRIST RESTRAINTS IN PLACE, RELEASED AND REAPPLIED. PT EDUCATED ABOUT IMPORTANCE OF KEEPING OXYGEN IN PLACE. BED LOCKED IN LOWEST POSITION, SAFETY ALARMS CHECKED AND VERIFIED. WILL CONTINUE TO OBSERVE.
[2018-11-17] MEDS: MULTIVITAMIN IV SCH ×3 (20:19)
[2018-11-17] MEDS: AMINO ACIDS 8.5% IV SCH ×3 (20:19)
[2018-11-17] MEDS: DEXTROSE IV SCH ×3 (20:19)
[2018-11-17] MEDS: SUSTIVA 600 MG PO SCH (20:44)
[2018-11-17] MEDS: ATORVASTATIN 20 MG TAB PO SCH (20:44)
[2018-11-17] MEDS: INSULIN LISPRO SLIDING SCALE 100 UNITS/ML VIAL SUBQ PRN (23:29)
[2018-11-18] VITALS (16 sets, daily range): BP systolic 94–167; BP diastolic 39–91
--- NOTE | 2018-11-18 00:15 | NUR ---
PT WANTS THIS TIME TO USE BIPAP FOR THE NIGHT AND PT WAS PLACED ON BIPAP. VITALS STABLE AT THIS TIME
--- NOTE | 2018-11-18 00:30 | NUR ---
PT REPOSITIONING HIMSELF REACHING BIPAP TUBE AND DISCONNECTING. REORIENTING PT. REAPPLIED O2 OXIMIZER WILL CONTINUE TO OBSERVE
[2018-11-18] MEDS: Z-GUARD PASTE TP SCH ×2 (01:00→13:20)
--- NOTE | 2018-11-18 04:00 | NUR ---
PT TURNED AND REPOSITIONED. BED BATH DONE Addendum: 11/18/18 at 0652 by Hill Godinez RN PT HAVING PERIODS OF CONFUSION REFUSED BED BATH, TAKING SUPPLEMENTAL O2 OFF. MOBILE SALES ASSISTANT @ BEDSIDE. WILL CONTINUE TO OBSERVE
[2018-11-18] MEDS: CLINDAMYCIN PHOS 600MG/D5W PM 50 ML IV SCH ×3 (05:15→21:22)
[2018-11-18] MEDS: HYDROCORTISONE NA SUCC 100 MG/2 ML VIAL IV SCH ×3 (05:15→21:28)
[2018-11-18] MEDS: CEFEPIME 2,000 MG in DEXTROSE 5% 100 ML IV SCH ×3 (05:15→21:22)
[2018-11-18 05:53] LABS: HEMOGLOBIN 8.3 g/dL (12.0-18.0); MEAN CORPUSCULAR HEMOGLOBIN 29 pg (27-31); MEAN CORPUSCULAR HGB CONC 32 g/dL (33-37); MEAN CORPUSCULAR VOLUME 90.4 fL (80-94); PLATELET COUNT (AUTO) 39 K/uL (140-450); RED BLOOD CELL COUNT(AUTO) 2.88 MIL/uL (4.20-6.10); RED CELL DISTRIBUTION WIDTH 18.9 % (11.6-13.7)
[2018-11-18] MEDS: BLOOD GLUCOSE MONITORING 1 DEV DEV MC SCH ×3 (06:04→17:06)
[2018-11-18 06:08] LABS: ANION GAP 11.9 (8-16); CARBON DIOXIDE 25.2 mmol/L (21-32); CHLORIDE 113 mmol/L (98-107); CREATININE 1.5 mg/dL (0.7-1.3); GLUCOSE 133 mg/dL (74-106); POTASSIUM 3.1 mmol/L (3.5-5.1); SODIUM SERUM 147 mmol/L (136-145); UREA NITROGEN, BLOOD 43 mg/dL (7-18)
[2018-11-18 06:12] LABS: MAGNESIUM 2.3 mg/dL (1.8-2.4); PHOSPHORUS 2.7 mg/dL (2.5-4.9)
[2018-11-18 06:31] LABS: WHITE BLOOD COUNT (AUTO) 11.1 K/uL (4.8-10.8)
[2018-11-18 06:33] LABS: CORRECTED WHITE BLOOD COUNT 5.6 K/uL (4.5-11.0); LYMPHOCYTES % (MANUAL) 26 % (20-46); MONOCYTES % (MANUAL) 21 % (5-12)
--- NOTE | 2018-11-18 06:42 | NUR ---
DR SUGGS @ BEDSIDE
[2018-11-18] MEDS: INSULIN LISPRO SLIDING SCALE 100 UNITS/ML VIAL SUBQ PRN ×3 (06:47→17:08)
[2018-11-18] MEDS: ALBUTEROL SULFATE/IPRATROPIU 3 ML SOL INH PRN (07:07)
--- NOTE | 2018-11-18 07:24 | NUR ---
REPORT GIVEN TO DAY SHIFT RN FOR CONTINUITY OF CARE
--- NOTE | 2018-11-18 07:25 | NUR ---
RECEIVED REPORT FROM WEB ASSISTANT RN AT BEDSIDE, PT IS AAOX2, CONFUSED SOMETIMES, ABLE TO FOLLOW COMMANDS SOMETIMES, ON SOFT RESTRAIN, VSS, DENIES PAIN. NO S/S OF DISTRESS, ON OXYMIZER AT 2L, DIMINISHED LUNG SOUNDS KEENA. A-FIB/PVC'S, DEMAND PACED RHYTHM ON SAND MILL OPERATOR CORE SAND, SOFT ABDOMEN WITH ACTIVE BOWEL SOUNDS IN ALL QUADRANTS. INCONTINENT, CERVANTES CATHETER IN PLACE DRAINING CLEAR YELLOW URINE VIA GRAVITY, GENERALIZED WEAKNESS TO ALL EXTREMITIES, SKIN IS WARM AND DRY TO TOUCH, BRUISES TO LEFT SIDE OF DRUNK NOTED, NONPITTING EDEMA TO LUE NOTED, OPEN WOUND TO SACRAL (SEE WOUND ASSESSMENT) IV SITE TO RIGHT FOREARM 20GA, AND LEFT FOREARM 20GA, PATENT, RUNNING PPN AT 40 ML/HR. HOB ELEVATED 30 DEGREES, SAFETY MEASURES IN PLACE, SCDS TO BLE, POSITION CHANGED FOR OFF LOAD PRESSURE AND COMFORT, WILL CONTINUE TO MONITOR. Addendum: 11/18/18 at 1048 by Ralph Mcnally RN OXYMIZER AT 6L
[2018-11-18] MEDS: AMIODARONE 200 MG TAB PO SCH ×2 (09:00→21:00)
[2018-11-18] MEDS: LACTOBACILLUS RHAMNOSUS GG 1 EACH CAP PO SCH (09:00)
[2018-11-18] MEDS: POTASSIUM CHLORIDE 20% 40 MEQ/15 ML UDC PO SCH (09:00)
--- NOTE | 2018-11-18 09:00 | NUR ---
PT REFUSED PO MEDICATION AT THIS TIME.
--- NOTE | 2018-11-18 09:00 | NUR ---
PT REFUSED 0900 PO MEDS.
[2018-11-18] MEDS: FUROSEMIDE 40 MG/4 ML VIAL IVP SCH ×2 (09:01→16:54)
[2018-11-18] MEDS: PANTOPRAZOLE 40 MG INJ VIAL IVP SCH (09:01)
[2018-11-18] MEDS: FILGRASTIM-TBO 300 MCG/0.5 ML SYRINGE SUBQ SCH (09:02)
--- NOTE | 2018-11-18 09:15 | NUR ---
PICC LINE TELEPHONE CONSENT OBTAINED BY ANTHONY /PT'S FATHER, TWO RN WITNESSED THE CONSENT.
[2018-11-18] MEDS ORDERED: POTASSIUM CHLORIDE 40 MEQ, LIDOCAINE MPF 1% - 5 mL VIAL 25 MG in NACL 0.9% 250 ML IV SCH ×2 (10:00→17:00)
--- NOTE | 2018-11-18 10:00 | NUR ---
NO CHANGE OF CONDITION, NO S/S OF DISTRESS, DENIES PAIN, ON OXYMIZER AT 6L, POSITION CHANGED FOR OFF LOAD PRESSURE.
--- NOTE | 2018-11-18 10:15 | NUR ---
DR. ERICKSON CAME IN TO SEE PT AT BEDSIDE, UPDATED PT'S CONDITION, WILL FOLLOW UP WITH NEW ORDERS.
--- NOTE | 2018-11-18 10:37 | NUR ---
PICC LINE NURSE MOLINA AT BED, TIME OUT FOR PICC LINE INSERTION.
--- NOTE | 2018-11-18 11:40 | NUR ---
MIDLINE INSERTED TO FLACO BY PICC LINE NURSE, AND OK TO USE IT.
--- NOTE | 2018-11-18 12:00 | NUR ---
PT'S O2 SAT 73% ON OXYMIZER, NO DISTRESS, RT NOTIFIED, BACK ON BIPAP AT THIS TIME. DENIES PAIN, POSITION CHANGED FOR OFF LOAD PRESSURE.
--- NOTE | 2018-11-18 12:09 | NUR ---
placed pt on bipap with settings as charted pt was in some resp distress will continue to monitor pt on bipap
[2018-11-18] MEDS: LORazepam 2 MG/ML VIAL IVP PRN (12:25)
--- NOTE | 2018-11-18 12:26 | NUR ---
PT IS AGITATED, ON BIPAP, CRYING, RESTLESSNESS, ATIVAN GIVEN, WILL CONTINUE TO MONITOR.
[2018-11-18] MEDS: MORPHINE SULFATE 2 MG/ML SYR IVP PRN (13:19)
--- NOTE | 2018-11-18 13:19 | NUR ---
PT C/O PAIN, RESTLESSNESS, MORPHINE GIVEN.
--- NOTE | 2018-11-18 14:30 | NUR ---
PT HR BETWEEN 40-60, IRREGULAR WITH PVC'S, PT IS ASLEEP IN BED, NO S/S OF DISTRESS, DR. HOFFMAN MADE AWARE. Addendum: 11/18/18 at 1456 by Ralph Mcnally RN DR. SUGGS MADE AWARE AND CAME IN TO SEE PT, JUST MONITOR AT THIS TIME.
[2018-11-18 15:48] LABS: ANION GAP 13.1 (8-16); CARBON DIOXIDE 24.3 mmol/L (21-32); CHLORIDE 113 mmol/L (98-107); CREATININE 1.6 mg/dL (0.7-1.3); GLUCOSE 164 mg/dL (74-106); POTASSIUM 3.4 mmol/L (3.5-5.1); SODIUM SERUM 147 mmol/L (136-145); UREA NITROGEN, BLOOD 50 mg/dL (7-18)
--- NOTE | 2018-11-18 16:00 | NUR ---
PT IS ON BIPAP, VSS, FLACC 0, PM CARE AND CERVANTES CATHETER CARE PROVIDED, POSITION CHANGED FOR OFF LOAD PRESSURE.
--- NOTE | 2018-11-18 16:41 | NUR ---
DR. SIDDIQUI CAME IN TO SEE PT AT BEDSIDE, UPDATED PT'S CONDITION, WILL FOLLOW UP WITH NEW ORDERS.
[2018-11-18] MEDS: DESCOVY 200MG/25MG TAB PO SCH (16:55)
--- NOTE | 2018-11-18 18:00 | NUR ---
PT IS ASLEEP IN BED, NO S/S OF DISTRESS, VSS, FLACC 0, POSITION CHANGED FOR OFF LOAD PRESSURE.
--- NOTE | 2018-11-18 19:15 | NUR ---
REPORT GIVEN TO SKY CAP NURSE FOR CONTINUE OF CARE, PT IS IN STABLE CONDITION AT THIS TIME.
--- NOTE | 2018-11-18 19:30 | NUR ---
RECEIVED REPORT FROM MORNING RN, MELCHOR, FOR CONTINUITY OF CARE. VS STABLE AT THIS TIME. PT AFEBRILE. DENIES PAIN OR ANY DISCOMFORT AT THIS TIME. PT AOX1. PERRL. LUNG SOUNDS DIMINISHED. PT ON BIPAP WITH FIO2 AT 35%. RESPIRATIONS ARE EVEN AND UNLABORED. NO SIGNS OF SOB NOTED. S1+S2 NOTED. AFIB ON MONITOR WITH PVC. PULSE IS PALPABLE IN ALL EXTREMITIES. AFIB WITH PVCS ON MONITOR. ABDOMEN ROUND, SOFT AND NONDISTENDED. BS ACTIVE IN ALL QUADRANTS. CERVANTES CATHETER IN PLACE DRAINING CLEAR AND YELLOW URINE. RECEIVED PT WITH FLACO MIDLINE, LEFT FA PERIPHERAL IV ACCESS 20G AND RIGHT FA PERIPHERAL IV ACCESS 20G. ALL LINES ARE PATENT, INTACT, AND ASYMPTOMATIC. PT STILL ON SOFT WRIST RESTRAINTS DUE TO PULLING ON TUBES AND REMOVING BIPAP DESPITE REORIENTATION AND PT EDUCATION. HOB AT 30 DEGREES. ALL SAFETY PRECAUTIONS ARE IN PLACE. WILL CONTINUE TO MONITOR PT.
[2018-11-18] MEDS: AMINO ACIDS 8.5% IV SCH ×3 (19:36)
[2018-11-18] MEDS: MULTIVITAMIN IV SCH ×3 (19:36)
[2018-11-18] MEDS: DEXTROSE IV SCH ×3 (19:36)
[2018-11-18] MEDS ORDERED: DEXTROSE IV SCH ×3 (20:00)
[2018-11-18] MEDS ORDERED: MULTIVITAMIN IV SCH ×3 (20:00)
[2018-11-18] MEDS ORDERED: AMINO ACIDS 8.5% IV SCH ×3 (20:00)
[2018-11-18] MEDS: SUSTIVA 600 MG PO SCH (21:00)
[2018-11-18] MEDS: ATORVASTATIN 20 MG TAB PO SCH (21:00)
--- NOTE | 2018-11-18 21:20 | NUR ---
PT REFUSED TO TAKE PO MEDICATIONS. MD MENDES.
--- NOTE | 2018-11-18 23:40 | NUR ---
NO CHANGE IN PT'S CONDITION AT THIS TIME. PT TURNED AND REPOSITIONED. TOLERATED BEING TURNED WELL AND IS ABLE TO ASSIST.
[2018-11-19] VITALS (18 sets, daily range): BP systolic 101–142; BP diastolic 46–90
[2018-11-19] MEDS: BLOOD GLUCOSE MONITORING 1 DEV DEV MC SCH ×4 (01:00→18:33)
[2018-11-19] MEDS: Z-GUARD PASTE TP SCH ×2 (01:32→12:16)
[2018-11-19] MEDS: INSULIN LISPRO SLIDING SCALE 100 UNITS/ML VIAL SUBQ PRN ×3 (01:33→12:15)
--- NOTE | 2018-11-19 02:09 | NUR ---
VS STABLE. AFEBRILE. NO CHANGE IN PT'S CONDITION AT THIS TIME. RESPIRATIONS ARE EVEN AND UNLABORED. DOES NOT APPEAR TO HAVE ANY DIFFICULTY BREATHING. PT DENIES HAVING ANY PAIN. ALL SAFETY PRECAUTIONS ARE KEPT IN PLACE. WILL CONTINUE TO MONITOR PT.
--- NOTE | 2018-11-19 04:40 | NUR ---
MORNING CARE PROVIDED TO PT. PT TURNED AND REPOSITIONED. PT TOLERATED WELL. RESPIRATIONS ARE EVEN AND UNLABORED. WILL CONTINUE TO MONITOR PT.
[2018-11-19] MEDS: CLINDAMYCIN PHOS 600MG/D5W PM 50 ML IV SCH ×3 (05:17→21:01)
[2018-11-19] MEDS: HYDROCORTISONE NA SUCC 100 MG/2 ML VIAL IV SCH ×3 (05:18→21:01)
[2018-11-19] MEDS: CEFEPIME 2,000 MG in DEXTROSE 5% 100 ML IV SCH ×3 (05:18→21:40)
--- NOTE | 2018-11-19 07:25 | NUR ---
REPORT GIVEN TO MORNING RN FOR CONTINUITY OF CARE. VS STABLE AT THIS TIME
--- NOTE | 2018-11-19 07:30 | NUR ---
RECEIVED REPORT FROM WIRELESS COMMUNICATIONS ENGINEER RN. PT EYES CLOSED, AROUSABLE TO NAME, AAOX1, REORIENTED TO PLACE AND DATE/TIME. ABLE TO FOLLOW SIMPLE COMMANDS, ON SOFT WRIST RESTRAINTS. NO SKIN BREAKDOWN NOTED. AFEBRILE. DENIES PAIN. PACED RHYTHM W/ A-FIB/PVC'S ON MONITOR. ON BIPAP 12/5, FIO2 40%. LUNGS SOUND COARSE BILATERALLY. NO RESP DISTRESS NOTED AT THIS TIME. ABDOMEN SOFT, NONDISTENDED, NONTENDER WITH ACTIVE BOWEL SOUNDS. PERIPHERAL IVS TO RIGHT FOREARM 20G, LEFT FOREARM 20G, MID LINE TO FLACO PATENT AND INTACT. PT RECEIVING PPN AT 40 ML/HR. CERVANTES CATHETER IN PLACE DRAINING CLEAR YELLOW URINE TO GRAVITY DRAINAGE BAG. SCDS IN PLACE. SKIN IS DRY AND WARM TO TOUCH. ABRASION AND EXCORIATION TO BUTTOCKS, REDNESS TO SACROCOCCYX NOTED. REPOSITIONED FOR COMFORT. HOB ELEVATED 30 DEGREES, BED IN LOWEST POSITION AND CALL LIGHT WITHIN REACH. SAFETY PRECAUTIONS IN PLACE. WILL CONTINUE TO MONITOR.
[2018-11-19 07:48] LABS: ANION GAP 11.7 (8-16); CARBON DIOXIDE 25.7 mmol/L (21-32); CHLORIDE 116 mmol/L (98-107); CREATININE 1.5 mg/dL (0.7-1.3); GLUCOSE 182 mg/dL (74-106); POTASSIUM 3.4 mmol/L (3.5-5.1); SODIUM SERUM 150 mmol/L (136-145); UREA NITROGEN, BLOOD 54 mg/dL (7-18)
[2018-11-19 07:51] LABS: MAGNESIUM 2.2 mg/dL (1.8-2.4); PHOSPHORUS 2.7 mg/dL (2.5-4.9)
[2018-11-19] MEDS: POTASSIUM CHLORIDE 20% 40 MEQ/15 ML UDC PO SCH (09:00)
[2018-11-19] MEDS: AMIODARONE 200 MG TAB PO SCH ×2 (09:00→21:02)
[2018-11-19] MEDS ORDERED: FUROSEMIDE 40 MG/4 ML VIAL IVP SCH (09:00)
[2018-11-19] MEDS ORDERED: DIGOXIN 0.25 MG/ML AMP IV SCH (09:00)
[2018-11-19] MEDS ORDERED: HYDROcodone/APAP 5/325 MG 1 TAB TAB PO PRN (09:00)
[2018-11-19] MEDS: LACTOBACILLUS RHAMNOSUS GG 1 EACH CAP PO SCH (09:00)
--- NOTE | 2018-11-19 09:00 | NUR ---
PT DOES NOT FOLLOW COMMANDS TO SWALLOW. PO MEDS HELD AT THIS TIME. DR. SOOD MADE AWARE.
--- NOTE | 2018-11-19 09:31 | NUR ---
PT TAKEN OFF OF BIPAP AND PLACED ON 3L NC. PT NOT IN ANY DISTRESS AT THIS TIME. WILL CONTINUE TO MONITOR.
[2018-11-19] MEDS: FILGRASTIM-TBO 300 MCG/0.5 ML SYRINGE SUBQ SCH (09:36)
[2018-11-19] MEDS: PANTOPRAZOLE 40 MG INJ VIAL IVP SCH (09:36)
--- NOTE | 2018-11-19 09:59 | NUR ---
CHEST X-RAY BEING TAKEN AT BEDSIDE. VSS. PT ON O2 3 LPM/NC. NO DISTRESS NOTED. WILL CONTINUE TO MONITOR.
[2018-11-19] MEDS ORDERED: POTASSIUM CHLORIDE 40 MEQ, LIDOCAINE 1% 25 MG in NACL 0.9% 250 ML IV SCH (10:00)
[2018-11-19] MEDS ORDERED: MORPHINE SULFATE 2 MG/ML SYR IVP PRN ×2 (10:30→12:25)
--- NOTE | 2018-11-19 10:40 | NUR ---
WOUND CARE EVALUATION NOTES: REASON FOR EVALUATION: SAVITA-ANAL OPEN WOUNDS AND LOW GRISEL SCORE SKIN ASSESSMENT DONE ON THIS 73 Y/O MALE PATIENT FROM HOME TO [facility], WITH INITIAL DIAGNOSIS OF SOB X2 DAYS. PAST MEDICAL AND SURGICAL HISTORY INCLUDE HTN, CA OF LUNG AND PROSTATE, CHF AND HIV, LAST CHEMO THERAPY DONE AROUND A WEEK AGO FROM DATE OF ADMISSION. ALL ABOVE INFORMATION WAS OBTAINED FROM THE ADMISSION H&P. PATIENT OPENS HIS EYES WHEN HIS NAME WAS CALLED BUT UNABLE TO FOLLOW COMMAND. FC 16FR PATENT AND INTACT TO DARK YELLOW URINE IN MODERATE AMOUNT. SKIN WARM TO TOUCH WNL, NO EDEMA BLE, PRESENT OF PEDAL PULSES. CAPILLARY REFILLED <2 SEC. MIDLINE TO LEFT UPPER ARM, DRESSING DCI. NEEDS MAX ASSISTANCE IN TURNING AND REPOSITION. WRIST RESTRAINTS WERE RELEASED DURING TIME OF ASSESSMENT AND NO RESTLESS NOTICE. WRIST AREA SKIN INTACT, NO REDNESS. INITIAL PLAN OF CARE AND PRESSURE PREVENTIVE MEASURES DISCUSSED WITH PRIMARY RN. DR. SOOD NOTIFY OF LEFT AND RIGHT UPPER ARMS ERYTHEMA AND LEFT ABOVE HIP AND LEFT FLANK AREA ERYTHEMA. COMORBIDITIES RELATED TO FURTHER SKIN BREAKS: INFECTION, CANCER, DECREASE FUNCTIONAL MOBILITY, INCONTINENT OF BOWEL, LOW ALBUMIN LEVEL AND HOB ELEVATED THE MAJORY OF TIMES DUE TO MEDICAL REASONS. INTEGUMENTARY: -MID CHEST OLD HEALED SURGICAL SCAR -MULTIPLE DRY SCABS TO UPPER BACK -LEFT AND RIGHT UPPER ARMS ERYTHEMA WITH +1 SWELLING WARM TO TOUCH -SPINAL THORACIC AREA, SACRAL COCCYX, R/L EARS AND R/L HEELS BLANCHABLE REDNESS -RIGHT/ LEFT INNER BUTTOCKS TO PERIANAL WITH INCONTINENCE ASSOCIATED DERMATITIS. MULTIPLE SKIN EROSIONS, WOUND BEDS ARE RED, MOIST NO ODOR, SAVITA-WOUND SKIN DENUDED, FURTHER DAMAGE INDICATED -LEFT ABOVE HIP AND LEFT FLANK AREA ERYTHEMA WITH SKIN INTACT. RECOMMENDATIONS: -ULTRA SOUNDS TO R/L UPPER ARMS -APPLY Z GUARD TO RIGHT/ LEFT INNER BUTTOCKS TO SAVITA-ANAL BIDWC AND ABDULLAHI -APPLY OPTIFOAM TO SPINAL THORACIC AREA, AND SACRALCOCCYX AREA QD PREVENTION -APPLY HYDRAGUARD TO BLANCHABLE REDNESS TO R/L EARS AND R/L HEELS -OFFLOAD BILATERAL HEELS BY PLACING PILLOWS UNDER CALVES AT ALL TIMES, UNLESS OTHERWISE CONTRAINDICATED -KEEP SKIN CLEAN AND DRY AT ALL TIMES. -PRESSURE REDISTRIBUTION SURFACE THERAPY. -CONTINUE TO FOLLOW RD RECOMMENDATIONS. RECOMMENDATIONS DISCUSSED WITH PRIMARY RN. AND DR. SOOD WILL FOLLOW UP PATIENT Q 7 -10 DAYS AND PRN. PLEASE CONTACT WOUND CARE NURSE FOR ANY QUESTIONS AND CHANGES IN SKIN CONDITION.
--- NOTE | 2018-11-19 11:05 | NUR ---
NGT INSERTED TO LEFT NARE. PLACEMENT CONFIRMED. PT'S VSS AT THIS TIME. WILL CONTINUE TO MONITOR.
--- NOTE | 2018-11-19 12:32 | NUR ---
Speech Therapy note Order for repeat bedside swallow eval received, chart reviewed. Per RN and Dr. Rodolfo Lizama in unit, pt with new aspiration and no swallow response. Per Dr. Rodolfo Lizama, order to be cancelled. Thank you and please reorder if/when pt is appropriate for p.o. trials.
--- NOTE | 2018-11-19 12:43 | NUR ---
LAURAB COMPLETED FOR NGT PLACEMENT.
[2018-11-19] MEDS ORDERED: FOAM DRESSING TP SCH (13:00)
[2018-11-19] MEDS ORDERED: HYDRAGUARD CREAM TP SCH (13:00)
--- NOTE | 2018-11-19 13:55 | NUR ---
RECEIVED AN ORDER TO TRANSFER PATIENT TO CONTRACTED FACILITY. I CALLED IRIS AT [facility] AND INFORMED HER, . I GAVE HER THE PHONE NUMBER FOR DR. BRAXTON.
--- NOTE | 2018-11-19 15:30 | NUR ---
PER EDWARD FROM [facility], PT IS GOING TO BE TRANSFERRED TO ROOM 340 AT [facility].
[2018-11-19] MEDS ORDERED: ZGUARD TP (16:39)
[2018-11-19] MEDS ORDERED: ACET-1182 PO (16:39)
[2018-11-19] MEDS ORDERED: MORP2SOL18 IVP (16:39)
[2018-11-19] MEDS ORDERED: CEFE2SOL IV (16:39)
[2018-11-19] MEDS ORDERED: Foam Dressing TP (16:39)
[2018-11-19] MEDS ORDERED: AMIO200T10 PO (16:39)
[2018-11-19] MEDS ORDERED: ATI2I IVP (16:39)
[2018-11-19] MEDS ORDERED: Hydraguard TP (16:39)
[2018-11-19] MEDS ORDERED: [UNRECOGNIZED DRUG - CODE] IV (16:39)
[2018-11-19] MEDS ORDERED: DOCU-299 PO (16:39)
[2018-11-19] MEDS ORDERED: PANT40PD7 IVP (16:39)
[2018-11-19] MEDS ORDERED: CLIN300C2 PO (16:39)
[2018-11-19] MEDS ORDERED: HUMSLIDE SUBQ (16:39)
[2018-11-19] MEDS ORDERED: LAS20I IVP (16:39)
[2018-11-19] MEDS ORDERED: ONDA2SOL45 IM/IVP (16:39)
[2018-11-19] MEDS ORDERED: LACT10CA PO (16:39)
[2018-11-19] MEDS ORDERED: SC100I IV (16:39)
[2018-11-19] MEDS ORDERED: TBO-300S SUBQ (17:11)
--- NOTE | 2018-11-19 17:45 | NUR ---
CALLED [facility] FOR REPORT. PER KAROL, CALL BACK 20-30 LATER FOR REPORT.
--- NOTE | 2018-11-19 18:15 | NUR ---
REPORT GIVEN TO JESUS ROBERSON AT [facility] FOR CONTINUITY OF CARE. ALL QUESTIONS ANSWERED.
[2018-11-19] MEDS: DESCOVY 200MG/25MG TAB PO SCH (18:35)
--- NOTE | 2018-11-19 19:25 | NUR ---
REPORT GIVEN TO NIGHT NURSE AT BEDSIDE. PT IS STABLE.
--- NOTE | 2018-11-19 19:25 | NUR ---
RECEIVED PATIENT ON BED, AROUSABLE TO CALLS BY OPENING HIS EYES; ON 3 LITERS S02 91-92%; CARDIASCOPE SHOWS ON ATRIAL FIB TO PACING RHYTHM HR 92/MIN AND WITH OCCASIONAL PVC'S. COMMENCING ON PPN AT 40 ML/HR VIA MIDLINE ON LEFT UPPER ARM, PATENT AND INTACT. ABDOMEN SOFT; HYPOACTIVE BOWEL SOUNDS, NGT IN PLACE; INTACT. WITH CERVANTES CATH IN SITU DRAINING TO CLEAR YELLOW URINE OUTPUT; PATENT AND INTACT.
[2018-11-19] MEDS ORDERED: INSULIN REGULAR IV SCH (20:00)
[2018-11-19] MEDS ORDERED: [UNRECOGNIZED DRUG - OTHER] IV SCH (20:00)
[2018-11-19] MEDS ORDERED: HUMAN IV SCH (20:00)
[2018-11-19] MEDS ORDERED: MULTIVITAMIN IV SCH (20:00)
[2018-11-19] MEDS ORDERED: DEXTROSE 20% IV SCH (20:00)
--- NOTE | 2018-11-19 20:30 | NUR ---
FOR DISCHARGE TO [facility] VIA [facility] BUT PER [facility] THEY WILL BE DELAYED FOR FEW H OURS IN PICKING UP THE PATIENT DUE TO HIGH VOLUME OF 911 CALLS.
[2018-11-19] MEDS: ATORVASTATIN 20 MG TAB PO SCH (21:02)
[2018-11-19] MEDS: SUSTIVA 600 MG PO SCH (21:03)
--- NOTE | 2018-11-19 23:08 | NUR ---
[facility] HERE TO PICK-UP THE PATIENT. DISCHARGE TO [facility] TELE DEPT.; ENDORSED TO AMBULANCE NURSE.
== END 2018-11-19 23:10 | disposition short-term general hospital (02) | DRG 871 ==
LOC: MED 16:34 → MTU 19:33 → UNDOADMIN 19:33 → MIC 20:32
PROVIDERS: ADMIT General Practice; ATTEND General Practice
PROC: 30233N1 Transfusion of Nonautologous Red Blood Cells into Peripheral Vein, Percutaneous Approach (ICD-10-PCS; 2018-11-12)
PROC: 06H033Z Insertion of Infusion Device into Inferior Vena Cava, Percutaneous Approach (ICD-10-PCS; principal; 2018-11-13)
PROC: 30233R1 Transfusion of Nonautologous Platelets into Peripheral Vein, Percutaneous Approach (ICD-10-PCS; 2018-11-13)
PROC: B549ZZA Ultrasonography of Inferior Vena Cava, Guidance (ICD-10-PCS; 2018-11-13)
PROC: 5A09357 Assistance with Respiratory Ventilation, Less than 24 Consecutive Hours, Continuous Positive Airway Pressure (ICD-10-PCS; 2018-11-16)
PROC: 5A09357 Assistance with Respiratory Ventilation, Less than 24 Consecutive Hours, Continuous Positive Airway Pressure (ICD-10-PCS; 2018-11-18)
PROC: 5A09357 Assistance with Respiratory Ventilation, Less than 24 Consecutive Hours, Continuous Positive Airway Pressure (ICD-10-PCS; 2018-11-19)
DX: A41.9 Sepsis, unspecified organism (principal); J69.0 Pneumonitis due to inhalation of food and vomit; R65.21 Severe sepsis with septic shock; G93.41 Metabolic encephalopathy; N17.0 Acute kidney failure with tubular necrosis; J96.01 Acute respiratory failure with hypoxia; R57.0 Cardiogenic shock; I50.43 Acute on chronic combined systolic (congestive) and diastolic (congestive) heart failure; E43 Unspecified severe protein-calorie malnutrition; I21.A1 Myocardial infarction type 2; D68.9 Coagulation defect, unspecified; E87.1 Hypo-osmolality and hyponatremia; I42.0 Dilated cardiomyopathy; I47.2 Ventricular tachycardia; I82.432 Acute embolism and thrombosis of left popliteal vein; K92.1 Melena; E87.0 Hyperosmolality and hypernatremia; R18.8 Other ascites; E87.5 Hyperkalemia; E83.41 Hypermagnesemia; E78.00 Pure hypercholesterolemia, unspecified; I11.0 Hypertensive heart disease with heart failure; I25.10 Atherosclerotic heart disease of native coronary artery without angina pectoris; E86.1 Hypovolemia; I49.3 Ventricular premature depolarization; E86.0 Dehydration; G62.9 Polyneuropathy, unspecified; E87.6 Hypokalemia; I48.91 Unspecified atrial fibrillation; K76.0 Fatty (change of) liver, not elsewhere classified; E83.39 Other disorders of phosphorus metabolism; K40.90 Unilateral inguinal hernia, without obstruction or gangrene, not specified as recurrent; I07.1 Rheumatic tricuspid insufficiency; I27.21 Secondary pulmonary arterial hypertension; R73.03 Prediabetes; N20.0 Calculus of kidney; T45.1X5A Adverse effect of antineoplastic and immunosuppressive drugs, initial encounter; Y95 Nosocomial condition; Z85.118 Personal history of other malignant neoplasm of bronchus and lung; Z85.46 Personal history of malignant neoplasm of prostate; Z95.1 Presence of aortocoronary bypass graft; Z95.810 Presence of automatic (implantable) cardiac defibrillator; Z68.21 Body mass index [BMI] 21.0-21.9, adult; Y92.89 Other specified places as the place of occurrence of the external cause; Z85.830 Personal history of malignant neoplasm of bone; Z21 Asymptomatic human immunodeficiency virus [HIV] infection status
CPT/HCPCS: 36415; 36600; 70450; 71045; 71250; 74018; 76604; 76700; 78582; 80048; 80053; 80162; 80202; 80305; 81001; 82009; 82150; 82550; 82553; 82803; 82948; 83036; 83605; 83690; 83735; 83880; 84100; 84154; 84436; 84443; 84450; 84484; 84550; 85025; 85379; 85384; 85610; 85730; 86038; 86360; 86886; 86900; 86901; 86920; 87040; 87081; 87086; 87804; 92526; 93005; 93970; 94003; 94640; 94660; 96374; 99285; A9153; C1751; C9113; J0282; J0692; J1160; J1265; J1447; J1720; J1815; J1940; J2001; J2060; J2270; J2405; J2543; J3370; J3480; J3490; J7030; J7042; J7060; J7620; P9016; P9035; Q0092; Q0163